=== PATIENT | male | born 1935 | race Caucasian/White ===

== ENCOUNTER → 2016-08-20 | Outpatient (CLI) | payer MEDICARE, OTHER ==
--- NOTE | 2016-08-20 15:03 | REP ---
PA and lateral chest: There are no comparisons. There is a faintly visible 4 mm nodule in the right mid lung. There are no other masses or nodules. There are no infiltrates or effusions. Cardiac size is normal. The marquis, mediastinum, and bony thorax are unremarkable. Impression: There are no acute infiltrates or pleural effusions. There is a faintly visible 4 mm nodule in the right mid lung. I would recommend chest CT to determine if this is a true lung nodule. Otherwise, negative PA and lateral chest. Signed by Harman Moses MD 08/20/2016 02:55 P
== END ==
LOC: M RAD 14:33
PROVIDERS: ATTEND Family Medicine
DX: J06.9 Acute upper respiratory infection, unspecified (principal); R91.1 Solitary pulmonary nodule
CPT/HCPCS: 71020; G0463

== ENCOUNTER 2016-09-01 05:25 | Emergency (ER) | payer MEDICARE, OTHER ==
--- NOTE | 2016-09-01 07:54 | REP ---
Clinical: Acute chest pain . Comparison: 08/20/2016 . Technique: PA and lateral. Findings: The mediastinum and cardiac silhouette are normal. The lung east are clear and without acute consolidation, effusion, or pneumothorax. The skeletal structures are intact and normal. Impression: 1. No acute cardiopulmonary process. Signed by Sourav James MD 09/01/2016 07:45 A
[2016-09-01 08:01] LABS: BASO % 0.5 % (0.0-1.0); EOS # 0.2 K/mm3 (0.0-0.50); EOS % 2.2 % (0.0-3.0); LARGE UNSTAINED CELL # 0.2 K/mm3 (0.0-0.4); LARGE UNSTAINED CELL % 1.6 % (0.0-4.0); LYMPH # 2.2 K/mm3 (1.5-4.5); MEAN CORPUSCULAR HEMOGLOBIN 31.4 pg (27.0-33.0); MEAN CORPUSCULAR HGB CONC 34.2 g/dl (32.0-36.5); MONO # 0.8 K/mm3 (0.0-0.8); NEUTROPHILS # 7.3 K/mm3 (1.8-7.7); NEUTROPHILS % 68.8 % (36.0-66.0); PLATELET COUNT, AUTOMATED 222 k/mm3 (150-450); RED CELL DISTRIBUTION WIDTH 12.6 % (11.5-14.5); WHITE BLOOD COUNT 10.6 K/mm3 (4.0-10.0)
[2016-09-01 08:18] LABS: ANION GAP 9 MEQ/L (8-16); BLOOD UREA NITROGEN 16 MG/DL (7-18); CARBON DIOXIDE LEVEL 27 MEQ/L (21-32); CHLORIDE LEVEL 103 MEQ/L (98-107); CREATININE FOR GFR 1.36 MG/DL (0.70-1.30); GLOMERULAR FILTRATION RATE 53.5 (>35); GLUCOSE, FASTING 200 MG/DL (83-110); SODIUM LEVEL 139 MEQ/L (136-145)
--- NOTE | 2016-09-01 08:52 | ECGEPIP ---
Stationary ECG Study [facility] - ED Test Date: 2016-09-01 Pat Name: MICHEAL SHINE Department: Room: - Gender: M Pharmacy Services Director: gurpreet : 1935 Requested By: ITZEL Arias Order Number: [id number] Reading MD: Sean Banegas Measurements Intervals [place] Rate: 64 P: 24 DC: 183 QRS: -24 QRSD: 83 T: 38 QT: 375 QTc: 388 Interpretive Statements SINUS RHYTHM POSSIBLE LAE BORDERLINE LEFT AXIS DEVIATION NO PRIORS Electronically Signed On 09-01-2016 8:52:17 EST by Sean Banegas
[2016-09-01] MEDS ORDERED: ISOVUE-370 76% 100ML VIAL (Q9967) As Ordered ONE (08:54)
--- NOTE | 2016-09-01 09:40 | REP ---
Clinical: Acute chest pain and shortness of breath. Technique: Axial contrast enhanced images from the thoracic inlet to the upper abdomen using 100 ml Isovue 370 intravenous contrast material with coronal and sagittal re-formations. Findings: Satisfactory enhancement of the pulmonary vasculature is achieved and no filling defects are identified to suggest pulmonary embolus. Thoracic aorta is normal caliber without aneurysm or dissection. Heart and pericardium are normal. Bilateral lung east are well aerated and clear without acute pulmonary parenchymal consolidation or atelectasis. Small calcified granuloma up to 4 mm consistent with prior granulomas disease. No significant nodule or mass lesion. No pleural effusion/reaction. No pneumothorax. No adenopathy. Impression: No evidence for pulmonary embolus. No acute pleuroparenchymal or mediastinal process. Evidence of prior granulomatous disease. Signed by Sourav James MD 09/01/2016 09:32 A
[2016-09-01 11:23] LABS: INR 0.91
[2016-09-01] MEDS ORDERED: ALBUTEROL 90 MCG/ACT 8GM HFA INHALER As Ordered ONE (12:18)
--- NOTE | 2016-09-01 12:25 | EDDOCDS ---
Nurse's Notes [facility] Name: Andrei Trejo Age: 80 yrs Sex: Male : 1935 Arrival Date: 09/01/2016 Time: 05:25 Bed D1 Private MD: Diagnosis: Chest pain, unspecified Presentation: 09/01 05:32 Presenting complaint: Patient states: he has been treated for bronchitis/pneumonia for cz the past 2 months by [facility] and own provider . presents this a.m. with ongoing issues of same. nasal congestion cough non productive. Adult Sepsis Screening: The patient does not have new or worsening altered mentation. Patient's respiratory rate is less than 22. Systolic blood pressure is greater than 100. Patient has a qSOFA score of 0- Negative Sepsis Screen. Suicide/Homicide risk assessment- the patient denies having any suicidal and/or homicidal ideations and does not present with any other emotional, behavioral or mental health complaints. Status: Patient is not a director nursing service or dependent. Transition of care: patient was not received from another setting of care. 05:32 Acuity: CARLYN Level 3 cz 05:32 Method Of Arrival: Walkin/Carried/Asstd cz Triage Assessment: 05:42 General: Appears in no apparent distress. Pain: Denies pain. Respiratory: Onset: The cz symptoms/episode began/occurred month ago. Historical: - Allergies: TETRACYCLINES; - Home Meds: 1. Levaquin 500 mg Oral tab once daily has not taken today dose 2. enalapril maleate 10 mg Oral tab 3. Multivitamin Oral 4. Bentyl 10 mg Oral cap 3 times per day 5. benzaclin 6. klaron 7. eye vic lutei;n 8. Drisdol 50,000 unit Oral cap once daily 9. dicyclomine 10 mg Oral cap bid 10. esomeprazole magnesium 40 mg Oral cpDR 2 times per day 11. ranitidine HCl 300 mg Oral tab 2 times per day 12. simvastatin 20 mg Oral tab once daily 13. Januvia 100 mg oral tab once daily 14. ipratropium bromide - PMHx: Hypertension; Diabetes - NIDDM: controlled; Hypercholesterolemia; GERD; DDD; Macular Degeneration; - PSHx: Cholecystectomy; - Social history: Smoking status: Patient states former smoker of tobacco. No barriers to communication noted, The patient speaks fluent Azerbaijani, Speaks appropriately for age. - Family history: Not pertinent. - : The pt / caregiver states he / she is not on anticoagulants. Home medication list is obtained from the patient. - Exposure Risk Screening:: None identified. Screenin:06 Screening information is obtained from the patient. Fall risk: No risks identified. js15 Assistance ADL's: requires no assistance with activities of daily living. Abuse/DV Screen: The patient / caregiver reports he/she is: not in a situation that causes fear, pain or injury. Nutritional screening: No deficits noted. home support is adequate. Assessment: 06:06 General: Appears in no apparent distress, comfortable, Behavior is appropriate for age, js15 cooperative. Pain: Denies pain. Neurological: Level of Consciousness is awake, alert, obeys commands, Oriented to person, place, time. Cardiovascular: Capillary refill < 3 seconds Heart tones S1 S2 present Rhythm is sinus rhythm Chest pain is denied. Respiratory: Airway is patent Respiratory effort is even, unlabored, Respiratory pattern is regular, symmetrical, Breath sounds are clear bilaterally. Reports shortness of breath. GI: Abdomen is non- distended Bowel sounds present X 4 quads. Abd is soft and non tender X 4 quads. Derm: Skin is pink, warm & dry. 07:10 General: Appears in no apparent distress, comfortable, Behavior is appropriate for age, ml6 cooperative. Pain: Denies pain. Neurological: No deficits noted. Level of Consciousness is awake, alert, Oriented to person, place, time. Cardiovascular: No deficits noted. Capillary refill < 3 seconds is brisk in bilateral fingers toes Heart tones S1 S2 present Edema is absent. Pulses are all present. Rhythm is sinus rhythm Chest pain is denied. Respiratory: No deficits noted. Airway is patent Respiratory effort is even, unlabored, Respiratory pattern is regular, symmetrical, Breath sounds are clear bilaterally. Reports no respiratory complaints. 08:10 General: Appears in no apparent distress, comfortable, Behavior is appropriate for age, ml6 cooperative. Pain: Denies pain. Neurological: No deficits noted. Level of Consciousness is awake, alert, Oriented to person, place, time. Cardiovascular: No deficits noted. Capillary refill < 3 seconds is brisk in bilateral fingers toes Heart tones S1 S2 present. 09:00 Reassessment: Patient appears in no apparent distress at this time. Patient denies pain ml6 at this time. Patient states feeling better. Patient states symptoms have improved. 10:00 Reassessment: Patient appears in no apparent distress at this time. Patient denies pain ml6 at this time. Patient states feeling better. Patient states symptoms have improved. Vital Signs: 05:42 BP 139 / 59; Pulse 74; Resp 16; Temp 97.7(O); Pulse Ox 94% on R/A; Weight 87.09 kg; cz Height 5 ft. 10 in. (177.80 cm); 07:12 BP 128 / 61; Pulse 71; Resp 16; Pulse Ox 98% on R/A; Pain 0/10; ml6 11:17 BP 122 / 54; Pulse 70; Resp 16; Temp 98.2(O); Pulse Ox 98% on R/A; Pain 0/10; ml6 05:42 Body Mass Index 27.55 (87.09 kg, 177.80 cm) cz Vitals: 05:42 Log In Time: September 01, 2016 at 05:25. cz ED Course: 05:28 Patient visited by Guillermina Beck. gjb 05:28 Patient moved to Waiting gjb 05:36 Triage Initiated cz 05:44 Patient moved to 15 cz 06:06 Patient visited by Nicolette Gann RN. js15 06:49 REPLACED BY [facility] Payment Agreement was scanned into [employer]redUP and attached to record. pm4 07:04 Virgen Choudhury MD is Attending Physician. fg 07:04 Patient visited by Virgen Choudhury MD. fg 07:10 EKG done. (by ED staff). Reviewed by Virgen Choudhury MD. jlf 07:10 Inserted peripheral IV: 18gauge IV in left antecubital area and blood collected. ml6 Patient tolerated the procedure well. Labs drawn. (by ED staff). Sent per order to lab. 07:15 Patient visited by Emilee Vanessa PCA. jlf 07:15 Patient visited by Emilee Vanessa PCA. jlf 07:44 Patient visited by Emilee Vanessa PCA. jlf 08:06 Chest, 2 View (pa\E\lat) Returned. EDMS 08:08 The patient / caregiver is instructed regarding the plan of care and ED course. ml6 08:17 Patient visited by Yash Patterson RN. ml6 09:12 EKG-ADULT Returned. EDMS 09:26 Patient visited by Yash Patterson RN. ml6 09:47 CT Chest Angio R/O PE Returned. EDMS 09:57 Patient visited by Yash Patterson RN. ml6 10:15 Patient visited by Emilee Vanessa PCA. jlf 10:51 Patient visited by Emilee Vanessa PCA. jlf 11:06 Patient visited by Yash Patterson RN. ml6 11:17 Nehemias Thayer MD is Referral Physician. fg 11:58 Patient visited by Yash Patterson RN. ml6 12:04 Nehemias Thayer MD is Referral Physician. fg 12:24 Patient moved to ml6 Administered Medications: 12:24 Drug: Ventolin 2 puffs [Ventolin HFA 90 mcg/actuation aerosol inhaler (2 puffs)] Route: ml6 Inhalation; Order Results: Lab Order: B-Type Natiuretic Peptide; SPEC'M 09/01/16 07:35 Test: BRAIN NATRIURETIC PEPTIDE; Value: 13.0; Range: <100; Units: PG/ML; Status: F Lab Order: Basic Metabolic Profile; SPEC'M 09/01/16 07:35 Test: GLUCOSE, FASTING; Value: 200; Range: 83-110; Abnormal: Above high normal; Units: MG/DL; Status: F Test: BLOOD UREA NITROGEN; Value: 16; Range: 7-18; Units: MG/DL; Status: F Test: CREATININE FOR GFR; Value: 1.36; Range: 0.70-1.30; Abnormal: Above high normal; Units: MG/DL; Status: F Test: GLOMERULAR FILTRATION RATE; Value: 53.5; Range: >35; Status: F Test: SODIUM LEVEL; Value: 139; Range: 136-145; Units: MEQ/L; Status: F Test: POTASSIUM SERUM; Value: 4.0; Range: 3.5-5.1; Units: MEQ/L; Status: F Test: CHLORIDE LEVEL; Value: 103; Range: 98-107; Units: MEQ/L; Status: F Test: CARBON DIOXIDE LEVEL; Value: 27; Range: 21-32; Units: MEQ/L; Status: F Test: ANION GAP; Value: 9; Range: 8-16; Units: MEQ/L; Status: F Test: CALCIUM LEVEL; Value: 9.0; Range: 8.8-10.2; Units: MG/DL; Status: F Test Note: ; Units are mL/min/1.73 m2 Chronic Kidney Disease Staging per NKF: Stage I & II GFR >=60 Normal to Mildly Decreased Stage III GFR 30-59 Moderately Decreased Stage IV GFR 15-29 Severely Decreased Stage V GFR <15 Very Little GFR Left ESRD GFR <15 on SHOTBLAST OPERATOR Lab Order: CBC with Diff; SPEC'M 09/01/16 07:35 Test: WHITE BLOOD COUNT; Value: 10.6; Range: 4.0-10.0; Abnormal: Above high normal; Units: K/mm3; Status: F Test: RED BLOOD COUNT; Value: 4.91; Range: 4.30-6.10; Units: M/mm3; Status: F Test: HEMOGLOBIN; Value: 15.5; Range: 14.0-18.0; Units: g/dl; Status: F Test: HEMATOCRIT; Value: 45.2; Range: 42.0-52.0; Units: %; Status: F Test: MEAN CORPUSCULAR VOLUME; Value: 92.0; Range: 80.0-96.0; Units: fl; Status: F Test: MEAN CORPUSCULAR HEMOGLOBIN; Value: 31.4; Range: 27.0-33.0; Units: pg; Status: F Test: MEAN CORPUSCULAR HGB CONC; Value: 34.2; Range: 32.0-36.5; Units: g/dl; Status: F Test: RED CELL DISTRIBUTION WIDTH; Value: 12.6; Range: 11.5-14.5; Units: %; Status: F Test: PLATELET COUNT, AUTOMATED; Value: 222; Range: 150-450; Units: k/mm3; Status: F Test: NEUTROPHILS %; Value: 68.8; Range: 36.0-66.0; Abnormal: Above high normal; Units: %; Status: F Test: LYMPH %; Value: 19.0; Range: 24.0-44.0; Abnormal: Below low normal; Units: %; Status: F Test: MONO %; Value: 8.0; Range: 0.0-5.0; Abnormal: Above high normal; Units: %; Status: F Test: EOS %; Value: 2.2; Range: 0.0-3.0; Units: %; Status: F Test: BASO %; Value: 0.5; Range: 0.0-1.0; Units: %; Status: F Test: LARGE UNSTAINED CELL %; Value: 1.6; Range: 0.0-4.0; Units: %; Status: F Test: NEUTROPHILS #; Value: 7.3; Range: 1.8-7.7; Units: K/mm3; Status: F Test: LYMPH #; Value: 2.2; Range: 1.5-4.5; Units: K/mm3; Status: F Test: MONO #; Value: 0.8; Range: 0.0-0.8; Units: K/mm3; Status: F Test: EOS #; Value: 0.2; Range: 0.0-0.50; Units: K/mm3; Status: F Test: BASO #; Value: 0.0; Range: 0.0-0.2; Units: K/mm3; Status: F Test: LARGE UNSTAINED CELL #; Value: 0.2; Range: 0.0-0.4; Units: K/mm3; Status: F Lab Order: Prothrombin Time Profile\E\INR; SPEC09/01/16 07:35 Test: PROTHROMBIN TIME; Value: 12.4; Range: 12.3-14.5; Units: SECONDS; Status: F Test: INR; Value: 0.91; Status: F Test Note: ; THERAPUTIC HUMAN INR VALUES INDICATIONS NORMAL RANGES PROPHYLAXIS/TREATMENT OF: VENOUS THROMBOSIS 2.0-3.0 PULMONARY EMBOLISM 2.0-3.0 PREVENTION OF SYSTEMIC EMBOLISM FROM: TISSUE HEART VALVES 2.0-3.0 ACUTE MYOCARDIAL INFARCTION 2.0-3.0 VALVULAR HEART DISEASE 2.0-3.0 ATRIAL FIBRILLATION 2.0-3.0 MECHANICAL VALVES(HIGH RISK) 2.5-3.5 RECURRENT MYOCARDIAL INFARCTION 2.5-3.5 Lab Order: CARDIAC MARKER PANEL; SPEC'M 09/01/16 07:35 Test: CPK CREATINE PHOSPHOKINASE; Value: 136; Range: 39-308; Units: U/L; Status: F Test: CK-MB VALUE MASS; Value: 1.7; Range: 0.0-3.6; Units: NG/ML; Status: F Test: MB/CK RELATIVE INDEX; Value: 1.25; Range: < OR =4; Status: F Test: TROPONIN I; Value: < 0.02; Range: < 0.10; Units: NG/ML; Status: F Test Note: ; DIAGNOSIS CRITERIA MMB ng/ml Relative Index (RI) NON-AMI < or = 5 N/A LEE ZONE > 5 < or = 4 AMI > 5 > 4 Radiology Order: Chest, 2 View (pa\E\lat) Test: Chest, 2 View (pa\E\lat) REASON FOR EXAMINATION: Chest Pain; Clinical: Acute chest pain .; ; Comparison: 08/20/2016 .; ; Technique: PA and lateral.; ; Findings:; The mediastinum and cardiac silhouette are normal. The lung east are clear and; without acute consolidation, effusion, or pneumothorax. The skeletal structures; are intact and normal.; ; Impression:; 1. 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: ; : 1935 Requested By: VIRGEN Arias; Order Number: [id number] Reading MD: Sean Banegas; Measurements; Intervals [place]; Rate: 64 P: 24; ME: 183 QRS: -24; QRSD: 83 T: 38; QT: 375; QTc: 388; Interpretive Statements; SINUS RHYTHM; POSSIBLE LAE; BORDERLINE LEFT AXIS DEVIATION; NO PRIORS; Electronically Signed On 09-01-2016 8:52:17 EST by Sean Banegas; Radiology Order: CT Chest Angio R/O PE Test: CT Chest Angio R/O PE REASON FOR EXAMINATION: Shortness of Breath; Clinical: Acute chest pain and shortness of breath.; ; Technique: Axial contrast enhanced images from the thoracic inlet to the upper; abdomen using 100 ml Isovue 370 intravenous contrast material with coronal and; sagittal re-formations.; ; Findings: Satisfactory enhancement of the pulmonary vasculature is achieved and; no filling defects are identified to suggest pulmonary embolus. Thoracic aorta; is normal caliber without aneurysm or dissection. Heart and pericardium are; normal. Bilateral lung east are well aerated and clear without acute pulmonary; parenchymal consolidation or atelectasis. Small calcified granuloma up to 4 mm; consistent with prior granulomas disease. No significant nodule or mass lesion.; No pleural effusion/reaction. No pneumothorax. No adenopathy.; ; Impression:; No evidence for pulmonary embolus.; No acute pleuroparenchymal or mediastinal process.; Evidence of prior granulomatous disease.; ; ; Signed by; Sourav James MD 09/01/2016 09:32 A; Outcome: 11:17 Discharge ordered by Provider. fg 12:07 Discharge ordered by Provider. fg 12:24 Patient left the ED. ml6 Signatures: Dispatcher [employer] EDMS Aguilar Evans RN RN cz Lowe, Matthew RN RN ml6 Emilee Vanessa PCA PCA jlf Sweeney, JuliaRN RN js15 Virgen Choudhury MD MD fg Beck, Gabriela gjb Montondo, Paul, Reg Reg pm4 Corrections: (The following items were deleted from the chart) 08:16 05:42 Allergies: No known drug Allergies; gary ml6 MTDD
--- NOTE | 2016-09-01 12:25 | EDDOCDS ---
Physician Documentation [facility] Name: Andrei Trejo Age: 80 yrs Sex: Male : 1935 Arrival Date: 09/01/2016 Time: 05:25 Bed D1 Private MD: Disposition: 09/01/16 12:07 Discharged to Home/Self Care. Impression: Chest pain, unspecified. - Condition is Stable. - Discharge Instructions: Nonspecific Chest Pain, Shortness of Breath, [id number]. - Medication Reconciliation, Local Pharmacy Hours form. - Follow up: Nehemias Thayer MD; When: Call to arrange an appointment; Reason: Continuance of care. - Problem is new. - Symptoms have improved. Historical: - Allergies: TETRACYCLINES; - Home Meds: 1. Levaquin 500 mg Oral tab once daily has not taken today dose 2. enalapril maleate 10 mg Oral tab 3. Multivitamin Oral 4. Bentyl 10 mg Oral cap 3 times per day 5. benzaclin 6. klaron 7. eye vic lutei;n 8. Drisdol 50,000 unit Oral cap once daily 9. dicyclomine 10 mg Oral cap bid 10. esomeprazole magnesium 40 mg Oral cpDR 2 times per day 11. ranitidine HCl 300 mg Oral tab 2 times per day 12. simvastatin 20 mg Oral tab once daily 13. Januvia 100 mg oral tab once daily 14. ipratropium bromide - PMHx: Hypertension; Diabetes - NIDDM: controlled; Hypercholesterolemia; GERD; DDD; Macular Degeneration; - PSHx: Cholecystectomy; - Social history: Smoking status: Patient states former smoker of tobacco. No barriers to communication noted, The patient speaks fluent Algerian, Speaks appropriately for age. - Family history: Not pertinent. - : The pt / caregiver states he / she is not on anticoagulants. Home medication list is obtained from the patient. - Exposure Risk Screening:: None identified. Vital Signs: 09/01 05:42 BP 139 / 59; Pulse 74; Resp 16; Temp 97.7(O); Pulse Ox 94% on R/A; Weight 87.09 kg / cz 192 lbs; Height 5 ft. 10 in. (177.80 cm); 07:12 BP 128 / 61; Pulse 71; Resp 16; Pulse Ox 98% on R/A; Pain 0/10; ml6 11:17 BP 122 / 54; Pulse 70; Resp 16; Temp 98.2(O); Pulse Ox 98% on R/A; Pain 0/10; ml6 05:42 Body Mass Index 27.55 (87.09 kg, 177.80 cm) cz MDM: 06:49 [facility] Payment Agreement was scanned into [employer] and attached to record. pm4 07:05 Banana Carrier/Pulse Ox/q 30 min VS ordered. fg 07:05 IV Saline Lock ordered. fg 07:05 Rhythm Strip to chart ordered. fg 07:05 Undress patient appropriately for examination ordered. fg 07:06 Financial registration complete. pm4 07:06 Chest, 2 View (pa\E\lat) Ordered. EDMS 07:06 B-Type Natiuretic Peptide Ordered. EDMS 07:06 Basic Metabolic Profile Ordered. EDMS 07:06 CBC with Diff Ordered. EDMS 07:06 Prothrombin Time Profile\E\INR Ordered. EDMS 07:06 ECG WITH READING ER PHYS+CARDIAG ordered. EDMS 08:01 CT Chest Angio R/O PE Ordered. EDMS 11:23 REGULAR DIET ordered. EDMS 11:24 CARDIAC MARKER PANEL Ordered. EDMS 12:16 Ventolin Inhaler 2 puffs Inhalation once ordered. fg Administered Medications: 12:24 Drug: Ventolin 2 puffs [Ventolin HFA 90 mcg/actuation aerosol inhaler (2 puffs)] Route: ml6 Inhalation; Signatures: Dispatcher [employer] EDMS Aguilar Evans RN RN cz Yash Patterson RN RN ml6 Nicolette Gann RN RN js15 Virgen Choudhury MD MD Preston Woodall, Reg Reg pm4 The chart was reviewed and I authenticate all verbal orders and agree with the evaluation and treatment provided.Corrections: (The following items were deleted from the chart) 08:16 05:42 Allergies: No known drug Allergies; cz ml6 11:23 11:22 CARDIAC MARKER PANEL ordered. EDMS EDMS Attachments: 06:49 [facility] Payment Agreement pm4 MTDD
--- NOTE | 2016-09-01 13:17 | EDDOCDS ---
Physician Documentation [facility] Name: Andrei Trejo Age: 80 yrs Sex: Male : 1935 Arrival Date: 09/01/2016 Time: 05:25 Bed D1 Private MD: Disposition: 09/01/16 12:07 Discharged to Home/Self Care. Impression: Chest pain, unspecified. - Condition is Stable. - Discharge Instructions: Nonspecific Chest Pain, Shortness of Breath, [id number]. - Medication Reconciliation, Local Pharmacy Hours form. - Follow up: Nehemias Thayer MD; When: Call to arrange an appointment; Reason: Continuance of care. - Problem is new. - Symptoms have improved. Historical: - Allergies: TETRACYCLINES; - Home Meds: 1. Levaquin 500 mg Oral tab once daily has not taken today dose 2. enalapril maleate 10 mg Oral tab 3. Multivitamin Oral 4. Bentyl 10 mg Oral cap 3 times per day 5. benzaclin 6. klaron 7. eye vic lutei;n 8. Drisdol 50,000 unit Oral cap once daily 9. dicyclomine 10 mg Oral cap bid 10. esomeprazole magnesium 40 mg Oral cpDR 2 times per day 11. ranitidine HCl 300 mg Oral tab 2 times per day 12. simvastatin 20 mg Oral tab once daily 13. Januvia 100 mg oral tab once daily 14. ipratropium bromide - PMHx: Hypertension; Diabetes - NIDDM: controlled; Hypercholesterolemia; GERD; DDD; Macular Degeneration; - PSHx: Cholecystectomy; - Social history: Smoking status: Patient states former smoker of tobacco. No barriers to communication noted, The patient speaks fluent Lao, Speaks appropriately for age. - Family history: Not pertinent. - : The pt / caregiver states he / she is not on anticoagulants. Home medication list is obtained from the patient. - Exposure Risk Screening:: None identified. Vital Signs: 09/01 05:42 BP 139 / 59; Pulse 74; Resp 16; Temp 97.7(O); Pulse Ox 94% on R/A; Weight 87.09 kg / cz 192 lbs; Height 5 ft. 10 in. (177.80 cm); 07:12 BP 128 / 61; Pulse 71; Resp 16; Pulse Ox 98% on R/A; Pain 0/10; ml6 11:17 BP 122 / 54; Pulse 70; Resp 16; Temp 98.2(O); Pulse Ox 98% on R/A; Pain 0/10; ml6 05:42 Body Mass Index 27.55 (87.09 kg, 177.80 cm) cz MDM: 06:49 [facility] [place] Agreement was scanned into [employer] and attached to record. pm4 07:05 Veterinary Laboratory Technician/Pulse Ox/q 30 min VS ordered. fg 07:05 IV Saline Lock ordered. fg 07:05 Rhythm Strip to chart ordered. fg 07:05 Undress patient appropriately for examination ordered. fg 07:06 Financial registration complete. pm4 07:06 Chest, 2 View (pa\E\lat) Ordered. EDMS 07:06 B-Type Natiuretic Peptide Ordered. EDMS 07:06 Basic Metabolic Profile Ordered. EDMS 07:06 CBC with Diff Ordered. EDMS 07:06 Prothrombin Time Profile\E\INR Ordered. EDMS 07:06 ECG WITH READING ER PHYS+CARDIAG ordered. EDMS 08:01 CT Chest Angio R/O PE Ordered. EDMS 11:23 REGULAR DIET ordered. EDMS 11:24 CARDIAC MARKER PANEL Ordered. EDMS 12:16 Ventolin Inhaler 2 puffs Inhalation once ordered. fg Administered Medications: 12:24 Drug: Ventolin 2 puffs [Ventolin HFA 90 mcg/actuation aerosol inhaler (2 puffs)] Route: ml6 Inhalation; Signatures: Dispatcher [employer] EDMS Aguilar Evans RN RN cz Yash Patterson RN RN ml6 Nicolette Gann RN RN js15 Virgen Choudhury MD MD Preston Woodall, Reg Reg pm4 The chart was reviewed and I authenticate all verbal orders and agree with the evaluation and treatment provided.Corrections: (The following items were deleted from the chart) 08:16 05:42 Allergies: No known drug Allergies; cz ml6 11:23 11:22 CARDIAC MARKER PANEL ordered. EDMS EDMS 13:07 12:54 TROPONIN+LAB ordered. EDMS EDMS 13:07 12:54 CARDIAC MARKER PANEL+LAB ordered. EDDE EDMS Attachments: 06:49 [facility] [place] pm4 MTDD
--- NOTE | 2016-09-01 13:17 | EDDOCDS ---
Nurse's Notes [facility] Name: Andrei Trejo Age: 80 yrs Sex: Male : 1935 Arrival Date: 09/01/2016 Time: 05:25 Bed D1 Private MD: Diagnosis: Chest pain, unspecified Presentation: 09/01 05:32 Presenting complaint: Patient states: he has been treated for bronchitis/pneumonia for cz the past 2 months by [facility] and own provider . presents this a.m. with ongoing issues of same. nasal congestion cough non productive. Adult Sepsis Screening: The patient does not have new or worsening altered mentation. Patient's respiratory rate is less than 22. Systolic blood pressure is greater than 100. Patient has a qSOFA score of 0- Negative Sepsis Screen. Suicide/Homicide risk assessment- the patient denies having any suicidal and/or homicidal ideations and does not present with any other emotional, behavioral or mental health complaints. 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 Transition of care: patient was not received from another setting of care. 05:32 Acuity: CARLYN Level 3 cz 05:32 Method Of Arrival: Walkin/Carried/Asstd cz Triage Assessment: 05:42 General: Appears in no apparent distress. Pain: Denies pain. Respiratory: Onset: The cz symptoms/episode began/occurred month ago. Historical: - Allergies: TETRACYCLINES; - Home Meds: 1. Levaquin 500 mg Oral tab once daily has not taken today dose 2. enalapril maleate 10 mg Oral tab 3. Multivitamin Oral 4. Bentyl 10 mg Oral cap 3 times per day 5. benzaclin 6. klaron 7. eye vic lutei;n 8. Drisdol 50,000 unit Oral cap once daily 9. dicyclomine 10 mg Oral cap bid 10. esomeprazole magnesium 40 mg Oral cpDR 2 times per day 11. ranitidine HCl 300 mg Oral tab 2 times per day 12. simvastatin 20 mg Oral tab once daily 13. Januvia 100 mg oral tab once daily 14. ipratropium bromide - PMHx: Hypertension; Diabetes - NIDDM: controlled; Hypercholesterolemia; GERD; DDD; Macular Degeneration; - PSHx: Cholecystectomy; - Social history: Smoking status: Patient states former smoker of tobacco. No barriers to communication noted, The patient speaks fluent [place], Speaks appropriately for age. - Family history: Not pertinent. - : The pt / caregiver states he / she is not on anticoagulants. Home medication list is obtained from the patient. - Exposure Risk Screening:: None identified. Screenin:06 Screening information is obtained from the patient. Fall risk: No risks identified. js15 Assistance ADL's: requires no assistance with activities of daily living. Abuse/DV Screen: The patient / caregiver reports he/she is: not in a situation that causes fear, pain or injury. Nutritional screening: No deficits noted. home support is adequate. 12:24 Advance Directives: Currently, there is no health care proxy. ml6 Assessment: 06:06 General: Appears in no apparent distress, comfortable, Behavior is appropriate for age, js15 cooperative. Pain: Denies pain. Neurological: Level of Consciousness is awake, alert, obeys commands, Oriented to person, place, time. Cardiovascular: Capillary refill < 3 seconds Heart tones S1 S2 present Rhythm is sinus rhythm Chest pain is denied. Respiratory: Airway is patent Respiratory effort is even, unlabored, Respiratory pattern is regular, symmetrical, Breath sounds are clear bilaterally. Reports shortness of breath. GI: Abdomen is non- distended Bowel sounds present X 4 quads. Abd is soft and non tender X 4 quads. Derm: Skin is pink, warm & dry. 07:10 General: Appears in no apparent distress, comfortable, Behavior is appropriate for age, ml6 cooperative. Pain: Denies pain. Neurological: No deficits noted. Level of Consciousness is awake, alert, Oriented to person, place, time. Cardiovascular: No deficits noted. Capillary refill < 3 seconds is brisk in bilateral fingers toes Heart tones S1 S2 present Edema is absent. Pulses are all present. Rhythm is sinus rhythm Chest pain is denied. Respiratory: No deficits noted. Airway is patent Respiratory effort is even, unlabored, Respiratory pattern is regular, symmetrical, Breath sounds are clear bilaterally. Reports no respiratory complaints. 08:10 General: Appears in no apparent distress, comfortable, Behavior is appropriate for age, ml6 cooperative. Pain: Denies pain. Neurological: No deficits noted. Level of Consciousness is awake, alert, Oriented to person, place, time. Cardiovascular: No deficits noted. Capillary refill < 3 seconds is brisk in bilateral fingers toes Heart tones S1 S2 present. 09:00 Reassessment: Patient appears in no apparent distress at this time. Patient denies pain ml6 at this time. Patient states feeling better. Patient states symptoms have improved. 10:00 Reassessment: Patient appears in no apparent distress at this time. Patient denies pain ml6 at this time. Patient states feeling better. Patient states symptoms have improved. 11:15 Reassessment: Patient appears in no apparent distress at this time. Patient denies pain ml6 at this time. Patient states feeling better. Patient states symptoms have improved. PATIENT AWAITING LAB RESULTS. 12:24 General: Appears in no apparent distress, comfortable, Behavior is appropriate for age, ml6 cooperative. Pain: Denies pain. Neurological: No deficits noted. Level of Consciousness is awake, alert, Oriented to person, place, time. Cardiovascular: No deficits noted. Capillary refill < 3 seconds is brisk in bilateral fingers toes Heart tones S1 S2 present. Respiratory: No deficits noted. GI: No deficits noted. Vital Signs: 05:42 BP 139 / 59; Pulse 74; Resp 16; Temp 97.7(O); Pulse Ox 94% on R/A; Weight 87.09 kg; cz Height 5 ft. 10 in. (177.80 cm); 07:12 BP 128 / 61; Pulse 71; Resp 16; Pulse Ox 98% on R/A; Pain 0/10; ml6 11:17 BP 122 / 54; Pulse 70; Resp 16; Temp 98.2(O); Pulse Ox 98% on R/A; Pain 0/10; ml6 05:42 Body Mass Index 27.55 (87.09 kg, 177.80 cm) Vitals: 05:42 Log In Time: September 01, 2016 at 05:25. ED Course: 05:28 Patient visited by Guillemrina Beck. gjb 05:28 Patient moved to Waiting gjb 05:36 Triage Initiated cz 05:44 Patient moved to 15 cz 06:06 Patient visited by Nicolette Gann RN. js15 06:49 [facility] [place] Agreement was scanned into [employer] and attached to record. pm4 07:04 Virgen Choudhury MD is Attending Physician. fg 07:04 Patient visited by Virgen Choudhury MD. fg 07:10 EKG done. (by ED staff). Reviewed by Virgen Choudhury MD. jlf 07:10 Inserted peripheral IV: 18gauge IV in left antecubital area and blood collected. ml6 Patient tolerated the procedure well. Labs drawn. (by ED staff). Sent per order to lab. 07:15 Patient visited by Emilee Vanessa PCA. jlf 07:15 Patient visited by Emilee Vanessa PCA. jlf 07:44 Patient visited by Emilee Vanessa PCA. jlf 08:06 Chest, 2 View (pa\E\lat) Returned. EDMS 08:08 The patient / caregiver is instructed regarding the plan of care and ED course. ml6 08:17 Patient visited by Yash Patterson RN. ml6 09:12 EKG-ADULT Returned. EDMS 09:26 Patient visited by Yash Patterson RN. ml6 09:47 CT Chest Angio R/O PE Returned. EDMS 09:57 Patient visited by Yash Patterson RN. ml6 10:15 Patient visited by Emilee Vanessa PCA. jlf 10:51 Patient visited by Emilee Vanessa PCA. jlf 11:06 Patient visited by Yash Patterson RN. ml6 11:17 Nehemias Thayer MD is Referral Physician. fg 11:58 Patient visited by Yash Patterson RN. ml6 12:04 Nehemias Thayer MD is Referral Physician. fg 12:24 Patient moved to D1 ml6 12:24 Discontinued IV bleeding controlled, pressure dressing applied, No redness/swelling at ml6 site. No procedures done that require assistance. Administered Medications: 12:24 Drug: Ventolin 2 puffs [Ventolin HFA 90 mcg/actuation aerosol inhaler (2 puffs)] Route: ml6 Inhalation; Order Results: Lab Order: B-Type Natiuretic Peptide; SPEC'M 09/01/16 07:35 Test: BRAIN NATRIURETIC PEPTIDE; Value: 13.0; Range: <100; Units: PG/ML; Status: F Lab Order: Basic Metabolic Profile; SPEC'M 09/01/16 07:35 Test: GLUCOSE, FASTING; Value: 200; Range: 83-110; Abnormal: Above high normal; Units: MG/DL; Status: F Test: BLOOD UREA NITROGEN; Value: 16; Range: 7-18; Units: MG/DL; Status: F Test: CREATININE FOR GFR; Value: 1.36; Range: 0.70-1.30; Abnormal: Above high normal; Units: MG/DL; Status: F Test: GLOMERULAR FILTRATION RATE; Value: 53.5; Range: >35; Status: F Test: SODIUM LEVEL; Value: 139; Range: 136-145; Units: MEQ/L; Status: F Test: POTASSIUM SERUM; Value: 4.0; Range: 3.5-5.1; Units: MEQ/L; Status: F Test: CHLORIDE LEVEL; Value: 103; Range: 98-107; Units: MEQ/L; Status: F Test: CARBON DIOXIDE LEVEL; Value: 27; Range: 21-32; Units: MEQ/L; Status: F Test: ANION GAP; Value: 9; Range: 8-16; Units: MEQ/L; Status: F Test: CALCIUM LEVEL; Value: 9.0; Range: 8.8-10.2; Units: MG/DL; Status: F Test Note: ; Units are mL/min/1.73 m2 Chronic Kidney Disease Staging per NKF: Stage I & II GFR >=60 Normal to Mildly Decreased Stage III GFR 30-59 Moderately Decreased Stage IV GFR 15-29 Severely Decreased Stage V GFR <15 Very Little GFR Left ESRD GFR <15 on TAB CARD PRESS OPERATOR Lab Order: CBC with Diff; SPEC'M 09/01/16 07:35 Test: WHITE BLOOD COUNT; Value: 10.6; Range: 4.0-10.0; Abnormal: Above high normal; Units: K/mm3; Status: F Test: RED BLOOD COUNT; Value: 4.91; Range: 4.30-6.10; Units: M/mm3; Status: F Test: HEMOGLOBIN; Value: 15.5; Range: 14.0-18.0; Units: g/dl; Status: F Test: HEMATOCRIT; Value: 45.2; Range: 42.0-52.0; Units: %; Status: F Test: MEAN CORPUSCULAR VOLUME; Value: 92.0; Range: 80.0-96.0; Units: fl; Status: F Test: MEAN CORPUSCULAR HEMOGLOBIN; Value: 31.4; Range: 27.0-33.0; Units: pg; Status: F Test: MEAN CORPUSCULAR HGB CONC; Value: 34.2; Range: 32.0-36.5; Units: g/dl; Status: F Test: RED CELL DISTRIBUTION WIDTH; Value: 12.6; Range: 11.5-14.5; Units: %; Status: F Test: PLATELET COUNT, AUTOMATED; Value: 222; Range: 150-450; Units: k/mm3; Status: F Test: NEUTROPHILS %; Value: 68.8; Range: 36.0-66.0; Abnormal: Above high normal; Units: %; Status: F Test: LYMPH %; Value: 19.0; Range: 24.0-44.0; Abnormal: Below low normal; Units: %; Status: F Test: MONO %; Value: 8.0; Range: 0.0-5.0; Abnormal: Above high normal; Units: %; Status: F Test: EOS %; Value: 2.2; Range: 0.0-3.0; Units: %; Status: F Test: BASO %; Value: 0.5; Range: 0.0-1.0; Units: %; Status: F Test: LARGE UNSTAINED CELL %; Value: 1.6; Range: 0.0-4.0; Units: %; Status: F Test: NEUTROPHILS #; Value: 7.3; Range: 1.8-7.7; Units: K/mm3; Status: F Test: LYMPH #; Value: 2.2; Range: 1.5-4.5; Units: K/mm3; Status: F Test: MONO #; Value: 0.8; Range: 0.0-0.8; Units: K/mm3; Status: F Test: EOS #; Value: 0.2; Range: 0.0-0.50; Units: K/mm3; Status: F Test: BASO #; Value: 0.0; Range: 0.0-0.2; Units: K/mm3; Status: F Test: LARGE UNSTAINED CELL #; Value: 0.2; Range: 0.0-0.4; Units: K/mm3; Status: F Lab Order: Prothrombin Time Profile\E\INR; SPEC'M 09/01/16 07:35 Test: PROTHROMBIN TIME; Value: 12.4; Range: 12.3-14.5; Units: SECONDS; Status: F Test: INR; Value: 0.91; Status: F Test Note: ; THERAPUTIC HUMAN INR VALUES INDICATIONS NORMAL RANGES PROPHYLAXIS/TREATMENT OF: VENOUS THROMBOSIS 2.0-3.0 PULMONARY EMBOLISM 2.0-3.0 PREVENTION OF SYSTEMIC EMBOLISM FROM: TISSUE HEART VALVES 2.0-3.0 ACUTE MYOCARDIAL INFARCTION 2.0-3.0 VALVULAR HEART DISEASE 2.0-3.0 ATRIAL FIBRILLATION 2.0-3.0 MECHANICAL VALVES(HIGH RISK) 2.5-3.5 RECURRENT MYOCARDIAL INFARCTION 2.5-3.5 Lab Order: CARDIAC MARKER PANEL; SPEC'M 09/01/16 07:35 Test: CPK CREATINE PHOSPHOKINASE; Value: 136; Range: 39-308; Units: U/L; Status: F Test: CK-MB VALUE MASS; Value: 1.7; Range: 0.0-3.6; Units: NG/ML; Status: F Test: MB/CK RELATIVE INDEX; Value: 1.25; Range: < OR =4; Status: F Test: TROPONIN I; Value: < 0.02; Range: < 0.10; Units: NG/ML; Status: F Test Note: ; DIAGNOSIS CRITERIA MMB ng/ml Relative Index (RI) NON-AMI < or = 5 N/A LEE ZONE > 5 < or = 4 AMI > 5 > 4 Radiology Order: Chest, 2 View (pa\E\lat) Test: Chest, 2 View (pa\E\lat) REASON FOR EXAMINATION: Chest Pain; Clinical: Acute chest pain .; ; Comparison: 08/20/2016 .; ; Technique: PA and lateral.; ; Findings:; The mediastinum and cardiac silhouette are normal. The lung east are clear and; without acute consolidation, effusion, or pneumothorax. The skeletal structures; are intact and normal.; ; Impression:; 1. 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; : 1935 Requested By: VIRGEN Arias; Order Number: [id number] Reading MD: Sean Banegas; Measurements; Intervals [place]; Rate: 64 P: 24; TN: 183 QRS: -24; QRSD: 83 T: 38; QT: 375; QTc: 388; Interpretive Statements; SINUS RHYTHM; POSSIBLE LAE; BORDERLINE LEFT AXIS DEVIATION; NO PRIORS; Electronically Signed On 09-01-2016 8:52:17 EST by Sean Banegas; Radiology Order: CT Chest Angio R/O PE Test: CT Chest Angio R/O PE REASON FOR EXAMINATION: Shortness of Breath; Clinical: Acute chest pain and shortness of breath.; ; Technique: Axial contrast enhanced images from the thoracic inlet to the upper; abdomen using 100 ml Isovue 370 intravenous contrast material with coronal and; sagittal re-formations.; ; Findings: Satisfactory enhancement of the pulmonary vasculature is achieved and; no filling defects are identified to suggest pulmonary embolus. Thoracic aorta; is normal caliber without aneurysm or dissection. Heart and pericardium are; normal. Bilateral lung east are well aerated and clear without acute pulmonary; parenchymal consolidation or atelectasis. Small calcified granuloma up to 4 mm; consistent with prior granulomas disease. No significant nodule or mass lesion.; No pleural effusion/reaction. No pneumothorax. No adenopathy.; ; Impression:; No evidence for pulmonary embolus.; No acute pleuroparenchymal or mediastinal process.; Evidence of prior granulomatous disease.; ; ; Signed by; Sourav James MD 09/01/2016 09:32 A; Outcome: 11:17 Discharge ordered by Provider. fg 12:07 Discharge ordered by Provider. fg 12:24 Patient left the ED. ml6 12:24 Discharge Assessment: patient administered narcotics - no. The following High Risk ml6 Discharge criteria are identified: None. Discharged to home ambulatory, with family. Condition: improved. Discharge instructions given to patient, Instructed on discharge instructions, follow up and referral plans. medication usage, Demonstrated understanding of instructions, medications, Pt was receptive of discharge instructions/ teaching. 13:14 No special radiology studies were completed. Property :Personal belongings accompany Pt.ml6 13:16 Patient left the ED. ml6 Signatures: Dispatcher [facility] EDPA Aguilar Evans RN RN cz Lowe, Matthew, RN RN ml6 Emilee Vanessa, MERCHANDISE FOR RESALE PURCHASING AGENT MERCHANDISE FOR RESALE PURCHASING AGENT jlf Nicolette Gann,RN RN js15 Virgen Choudhury MD MD fg Beck, Gabriela gjb Montondo, Paul, Reg Reg pm4 Corrections: (The following items were deleted from the chart) 08:16 05:42 Allergies: No known drug Allergies; cz ml6 MTDD
--- NOTE | 2016-09-03 14:17 | EDDOCDS ---
Physician Documentation [facility] Name: Andrei Trejo Age: 80 yrs Sex: Male : 1935 Arrival Date: 09/01/2016 Time: 05:25 Bed D1 Private MD: Disposition: 09/01/16 12:07 Discharged to Home/Self Care. Impression: Chest pain, unspecified. - Condition is Stable. - Discharge Instructions: Nonspecific Chest Pain, Shortness of Breath, [id number]. - Medication Reconciliation, Local Pharmacy Hours form. - Follow up: Nehemias Thayer MD; When: Call to arrange an appointment; Reason: Continuance of care. - Problem is new. - Symptoms have improved. Historical: - Allergies: TETRACYCLINES; - Home Meds: 1. Levaquin 500 mg Oral tab once daily has not taken today dose 2. enalapril maleate 10 mg Oral tab 3. Multivitamin Oral 4. Bentyl 10 mg Oral cap 3 times per day 5. benzaclin 6. klaron 7. eye vic lutei;n 8. Drisdol 50,000 unit Oral cap once daily 9. dicyclomine 10 mg Oral cap bid 10. esomeprazole magnesium 40 mg Oral cpDR 2 times per day 11. ranitidine HCl 300 mg Oral tab 2 times per day 12. simvastatin 20 mg Oral tab once daily 13. Januvia 100 mg oral tab once daily 14. ipratropium bromide - PMHx: Hypertension; Diabetes - NIDDM: controlled; Hypercholesterolemia; GERD; DDD; Macular Degeneration; - PSHx: Cholecystectomy; - Social history: Smoking status: Patient states former smoker of tobacco. No barriers to communication noted, The patient speaks fluent [place]anian, Speaks appropriately for age. - Family history: Not pertinent. - : The pt / caregiver states he / she is not on anticoagulants. Home medication list is obtained from the patient. - Exposure Risk Screening:: None identified. Vital Signs: 09/01 05:42 BP 139 / 59; Pulse 74; Resp 16; Temp 97.7(O); Pulse Ox 94% on R/A; Weight 87.09 kg / cz 192 lbs; Height 5 ft. 10 in. (177.80 cm); 07:12 BP 128 / 61; Pulse 71; Resp 16; Pulse Ox 98% on R/A; Pain 0/10; ml6 11:17 BP 122 / 54; Pulse 70; Resp 16; Temp 98.2(O); Pulse Ox 98% on R/A; Pain 0/10; ml6 05:42 Body Mass Index 27.55 (87.09 kg, 177.80 cm) cz MDM: 06:49 [facility] Payment Agreement was scanned into [employer] and attached to record. pm4 07:05 Cell Attendant Helper/Pulse Ox/q 30 min VS ordered. fg 07:05 IV Saline Lock ordered. fg 07:05 Rhythm Strip to chart ordered. fg 07:05 Undress patient appropriately for examination ordered. fg 07:06 Financial registration complete. pm4 07:06 Chest, 2 View (pa\E\lat) Ordered. EDMS 07:06 B-Type Natiuretic Peptide Ordered. EDMS 07:06 Basic Metabolic Profile Ordered. EDMS 07:06 CBC with Diff Ordered. EDMS 07:06 Prothrombin Time Profile\E\INR Ordered. EDMS 07:06 ECG WITH READING ER PHYS+CARDIAG ordered. EDMS 08:01 CT Chest Angio R/O PE Ordered. EDMS 11:23 REGULAR DIET ordered. EDMS 11:24 CARDIAC MARKER PANEL Ordered. EDMS 12:16 Ventolin Inhaler 2 puffs Inhalation once ordered. fg 17:10 T-Sheet-- Draft Copy was scanned into [employer] and attached to record. klr 09/02 11:50 ECG/EKG was scanned into [employer] and attached to record. gb Administered Medications: 09/01 12:24 Drug: Ventolin 2 puffs [Ventolin HFA 90 mcg/actuation aerosol inhaler (2 puffs)] Route: ml6 Inhalation; Signatures: Dispatcher [employer] EDMS Aguilar Evans, PATI RN cz Idania Canela, Reg Reg gb Yash Patterson RN RN ml6 Nicolette Gann,RN RN js15 Virgen Choudhury MD MD fg Redder, Kathie klr Montondo, Paul, Reg Reg pm4 The chart was reviewed and I authenticate all verbal orders and agree with the evaluation and treatment provided.Corrections: (The following items were deleted from the chart) 08:16 05:42 Allergies: No known drug Allergies; cz ml6 11:23 11:22 CARDIAC MARKER PANEL ordered. EDMS EDMS 13:07 12:54 TROPONIN+LAB ordered. EDMS EDMS : 12:54 CARDIAC MARKER PANEL+LAB ordered. EDMS EDMS Attachments: 06:49 [facility] Payment Agreement pm4 17:10 T-Sheet-- Draft Copy klr 09/02 11:50 ECG/EKG gb Chart Complete MTDD
--- NOTE | 2016-09-03 14:17 | EDDOCDS ---
Nurse's Notes [facility] Name: Andrei Trejo Age: 80 yrs Sex: Male : 1935 Arrival Date: 09/01/2016 Time: 05:25 Bed D1 Private MD: Diagnosis: Chest pain, unspecified Presentation: 09/01 05:32 Presenting complaint: Patient states: he has been treated for bronchitis/pneumonia for cz the past 2 months by [facility] and own provider . presents this a.m. with ongoing issues of same. nasal congestion cough non productive. Adult Sepsis Screening: The patient does not have new or worsening altered mentation. Patient's respiratory rate is less than 22. Systolic blood pressure is greater than 100. Patient has a qSOFA score of 0- Negative Sepsis Screen. Suicide/Homicide risk assessment- the patient denies having any suicidal and/or homicidal ideations and does not present with any other emotional, behavioral or mental health complaints. Status: Patient is not a client services vice president or dependent. Transition of care: patient was not received from another setting of care. 05:32 Acuity: CARLYN Level 3 cz 05:32 Method Of Arrival: Walkin/Carried/Asstd cz Triage Assessment: 05:42 General: Appears in no apparent distress. Pain: Denies pain. Respiratory: Onset: The cz symptoms/episode began/occurred month ago. Historical: - Allergies: TETRACYCLINES; - Home Meds: 1. Levaquin 500 mg Oral tab once daily has not taken today dose 2. enalapril maleate 10 mg Oral tab 3. Multivitamin Oral 4. Bentyl 10 mg Oral cap 3 times per day 5. benzaclin 6. klaron 7. eye vic lutei;n 8. Drisdol 50,000 unit Oral cap once daily 9. dicyclomine 10 mg Oral cap bid 10. esomeprazole magnesium 40 mg Oral cpDR 2 times per day 11. ranitidine HCl 300 mg Oral tab 2 times per day 12. simvastatin 20 mg Oral tab once daily 13. Januvia 100 mg oral tab once daily 14. ipratropium bromide - PMHx: Hypertension; Diabetes - NIDDM: controlled; Hypercholesterolemia; GERD; DDD; Macular Degeneration; - PSHx: Cholecystectomy; - Social history: Smoking status: Patient states former smoker of tobacco. No barriers to communication noted, The patient speaks fluent [place], Speaks appropriately for age. - Family history: Not pertinent. - : The pt / caregiver states he / she is not on anticoagulants. Home medication list is obtained from the patient. - Exposure Risk Screening:: None identified. Screenin:06 Screening information is obtained from the patient. Fall risk: No risks identified. js15 Assistance ADL's: requires no assistance with activities of daily living. Abuse/DV Screen: The patient / caregiver reports he/she is: not in a situation that causes fear, pain or injury. Nutritional screening: No deficits noted. home support is adequate. 12:24 Advance Directives: Currently, there is no health care proxy. ml6 Assessment: 06:06 General: Appears in no apparent distress, comfortable, Behavior is appropriate for age, js15 cooperative. Pain: Denies pain. Neurological: Level of Consciousness is awake, alert, obeys commands, Oriented to person, place, time. Cardiovascular: Capillary refill < 3 seconds Heart tones S1 S2 present Rhythm is sinus rhythm Chest pain is denied. Respiratory: Airway is patent Respiratory effort is even, unlabored, Respiratory pattern is regular, symmetrical, Breath sounds are clear bilaterally. Reports shortness of breath. GI: Abdomen is non- distended Bowel sounds present X 4 quads. Abd is soft and non tender X 4 quads. Derm: Skin is pink, warm & dry. 07:10 General: Appears in no apparent distress, comfortable, Behavior is appropriate for age, ml6 cooperative. Pain: Denies pain. Neurological: No deficits noted. Level of Consciousness is awake, alert, Oriented to person, place, time. Cardiovascular: No deficits noted. Capillary refill < 3 seconds is brisk in bilateral fingers toes Heart tones S1 S2 present Edema is absent. Pulses are all present. Rhythm is sinus rhythm Chest pain is denied. Respiratory: No deficits noted. Airway is patent Respiratory effort is even, unlabored, Respiratory pattern is regular, symmetrical, Breath sounds are clear bilaterally. Reports no respiratory complaints. 08:10 General: Appears in no apparent distress, comfortable, Behavior is appropriate for age, ml6 cooperative. Pain: Denies pain. Neurological: No deficits noted. Level of Consciousness is awake, alert, Oriented to person, place, time. Cardiovascular: No deficits noted. Capillary refill < 3 seconds is brisk in bilateral fingers toes Heart tones S1 S2 present. 09:00 Reassessment: Patient appears in no apparent distress at this time. Patient denies pain ml6 at this time. Patient states feeling better. Patient states symptoms have improved. 10:00 Reassessment: Patient appears in no apparent distress at this time. Patient denies pain ml6 at this time. Patient states feeling better. Patient states symptoms have improved. 11:15 Reassessment: Patient appears in no apparent distress at this time. Patient denies pain ml6 at this time. Patient states feeling better. Patient states symptoms have improved. PATIENT AWAITING LAB RESULTS. 12:24 General: Appears in no apparent distress, comfortable, Behavior is appropriate for age, ml6 cooperative. Pain: Denies pain. Neurological: No deficits noted. Level of Consciousness is awake, alert, Oriented to person, place, time. Cardiovascular: No deficits noted. Capillary refill < 3 seconds is brisk in bilateral fingers toes Heart tones S1 S2 present. Respiratory: No deficits noted. GI: No deficits noted. Vital Signs: 05:42 BP 139 / 59; Pulse 74; Resp 16; Temp 97.7(O); Pulse Ox 94% on R/A; Weight 87.09 kg; cz Height 5 ft. 10 in. (177.80 cm); 07:12 BP 128 / 61; Pulse 71; Resp 16; Pulse Ox 98% on R/A; Pain 0/10; ml6 11:17 BP 122 / 54; Pulse 70; Resp 16; Temp 98.2(O); Pulse Ox 98% on R/A; Pain 0/10; ml6 05:42 Body Mass Index 27.55 (87.09 kg, 177.80 cm) Vitals: 05:42 Log In Time: September 01, 2016 at 05:25. ED Course: 05:28 Patient visited by Guillermina Beck. gjb 05:28 Patient moved to Waiting gjb 05:36 Triage Initiated cz 05:44 Patient moved to 15 cz 06:06 Patient visited by Nicolette Gann RN. js15 06:49 [facility] [place] was scanned into MYOMO and attached to record. pm4 07:04 Virgen Choudhury MD is Attending Physician. fg 07:04 Patient visited by Virgen Choudhury MD. fg 07:10 EKG done. (by ED staff). Reviewed by Virgen Choudhury MD. jlf 07:10 Inserted peripheral IV: 18gauge IV in left antecubital area and blood collected. ml6 Patient tolerated the procedure well. Labs drawn. (by ED staff). Sent per order to lab. 07:15 Patient visited by Emilee Vanessa PCA. jlf 07:15 Patient visited by Emilee Vanessa PCA. jlf 07:44 Patient visited by Emilee Vanessa PCA. jlf 08:06 Chest, 2 View (pa\E\lat) Returned. EDMS 08:08 The patient / caregiver is instructed regarding the plan of care and ED course. ml6 08:17 Patient visited by Yash Patterson RN. ml6 09:12 EKG-ADULT Returned. EDMS 09:26 Patient visited by Yash Patterson RN. ml6 09:47 CT Chest Angio R/O PE Returned. EDMS 09:57 Patient visited by Yash Patterson RN. ml6 10:15 Patient visited by Emilee Vanessa PCA. jlf 10:51 Patient visited by Emilee Vanessa PCA. jlf 11:06 Patient visited by Yash Patterson RN. ml6 11:17 Nehemias Thayer MD is Referral Physician. fg 11:58 Patient visited by Yash Patterson RN. ml6 12:04 Nehemias Thayer MD is Referral Physician. fg 12:24 Patient moved to D1 ml6 12:24 Discontinued IV bleeding controlled, pressure dressing applied, No redness/swelling at ml6 site. No procedures done that require assistance. 17:10 T-Sheet-- Draft Copy was scanned into MYOMO and attached to record. r 09/02 11:50 ECG/EKG was scanned into MYOMO and attached to record. gb Administered Medications: 09/01 12:24 Drug: Ventolin 2 puffs [Ventolin HFA 90 mcg/actuation aerosol inhaler (2 puffs)] Route: ml6 Inhalation; Order Results: Lab Order: B-Type Natiuretic Peptide; SPEC'M 09/01/16 07:35 Test: BRAIN NATRIURETIC PEPTIDE; Value: 13.0; Range: <100; Units: PG/ML; Status: F Lab Order: Basic Metabolic Profile; SPEC'M 09/01/16 07:35 Test: GLUCOSE, FASTING; Value: 200; Range: 83-110; Abnormal: Above high normal; Units: MG/DL; Status: F Test: BLOOD UREA NITROGEN; Value: 16; Range: 7-18; Units: MG/DL; Status: F Test: CREATININE FOR GFR; Value: 1.36; Range: 0.70-1.30; Abnormal: Above high normal; Units: MG/DL; Status: F Test: GLOMERULAR FILTRATION RATE; Value: 53.5; Range: >35; Status: F Test: SODIUM LEVEL; Value: 139; Range: 136-145; Units: MEQ/L; Status: F Test: POTASSIUM SERUM; Value: 4.0; Range: 3.5-5.1; Units: MEQ/L; Status: F Test: CHLORIDE LEVEL; Value: 103; Range: 98-107; Units: MEQ/L; Status: F Test: CARBON DIOXIDE LEVEL; Value: 27; Range: 21-32; Units: MEQ/L; Status: F Test: ANION GAP; Value: 9; Range: 8-16; Units: MEQ/L; Status: F Test: CALCIUM LEVEL; Value: 9.0; Range: 8.8-10.2; Units: MG/DL; Status: F Test Note: ; Units are mL/min/1.73 m2 Chronic Kidney Disease Staging per NKF: Stage I & II GFR >=60 Normal to Mildly Decreased Stage III GFR 30-59 Moderately Decreased Stage IV GFR 15-29 Severely Decreased Stage V GFR <15 Very Little GFR Left ESRD GFR <15 on BIBLIOGRAPHIC SERVICES SPECIALIST Lab Order: CBC with Diff; SPEC'M 09/01/16 07:35 Test: WHITE BLOOD COUNT; Value: 10.6; Range: 4.0-10.0; Abnormal: Above high normal; Units: K/mm3; Status: F Test: RED BLOOD COUNT; Value: 4.91; Range: 4.30-6.10; Units: M/mm3; Status: F Test: HEMOGLOBIN; Value: 15.5; Range: 14.0-18.0; Units: g/dl; Status: F Test: HEMATOCRIT; Value: 45.2; Range: 42.0-52.0; Units: %; Status: F Test: MEAN CORPUSCULAR VOLUME; Value: 92.0; Range: 80.0-96.0; Units: fl; Status: F Test: MEAN CORPUSCULAR HEMOGLOBIN; Value: 31.4; Range: 27.0-33.0; Units: pg; Status: F Test: MEAN CORPUSCULAR HGB CONC; Value: 34.2; Range: 32.0-36.5; Units: g/dl; Status: F Test: RED CELL DISTRIBUTION WIDTH; Value: 12.6; Range: 11.5-14.5; Units: %; Status: F Test: PLATELET COUNT, AUTOMATED; Value: 222; Range: 150-450; Units: k/mm3; Status: F Test: NEUTROPHILS %; Value: 68.8; Range: 36.0-66.0; Abnormal: Above high normal; Units: %; Status: F Test: LYMPH %; Value: 19.0; Range: 24.0-44.0; Abnormal: Below low normal; Units: %; Status: F Test: MONO %; Value: 8.0; Range: 0.0-5.0; Abnormal: Above high normal; Units: %; Status: F Test: EOS %; Value: 2.2; Range: 0.0-3.0; Units: %; Status: F Test: BASO %; Value: 0.5; Range: 0.0-1.0; Units: %; Status: F Test: LARGE UNSTAINED CELL %; Value: 1.6; Range: 0.0-4.0; Units: %; Status: F Test: NEUTROPHILS #; Value: 7.3; Range: 1.8-7.7; Units: K/mm3; Status: F Test: LYMPH #; Value: 2.2; Range: 1.5-4.5; Units: K/mm3; Status: F Test: MONO #; Value: 0.8; Range: 0.0-0.8; Units: K/mm3; Status: F Test: EOS #; Value: 0.2; Range: 0.0-0.50; Units: K/mm3; Status: F Test: BASO #; Value: 0.0; Range: 0.0-0.2; Units: K/mm3; Status: F Test: LARGE UNSTAINED CELL #; Value: 0.2; Range: 0.0-0.4; Units: K/mm3; Status: F Lab Order: Prothrombin Time Profile\E\INR; SPEC'M 09/01/16 07:35 Test: PROTHROMBIN TIME; Value: 12.4; Range: 12.3-14.5; Units: SECONDS; Status: F Test: INR; Value: 0.91; Status: F Test Note: ; THERAPUTIC HUMAN INR VALUES INDICATIONS NORMAL RANGES PROPHYLAXIS/TREATMENT OF: VENOUS THROMBOSIS 2.0-3.0 PULMONARY EMBOLISM 2.0-3.0 PREVENTION OF SYSTEMIC EMBOLISM FROM: TISSUE HEART VALVES 2.0-3.0 ACUTE MYOCARDIAL INFARCTION 2.0-3.0 VALVULAR HEART DISEASE 2.0-3.0 ATRIAL FIBRILLATION 2.0-3.0 MECHANICAL VALVES(HIGH RISK) 2.5-3.5 RECURRENT MYOCARDIAL INFARCTION 2.5-3.5 Lab Order: CARDIAC MARKER PANEL; SPEC'M 09/01/16 07:35 Test: CPK CREATINE PHOSPHOKINASE; Value: 136; Range: 39-308; Units: U/L; Status: F Test: CK-MB VALUE MASS; Value: 1.7; Range: 0.0-3.6; Units: NG/ML; Status: F Test: MB/CK RELATIVE INDEX; Value: 1.25; Range: < OR =4; Status: F Test: TROPONIN I; Value: < 0.02; Range: < 0.10; Units: NG/ML; Status: F Test Note: ; DIAGNOSIS CRITERIA MMB ng/ml Relative Index (RI) NON-AMI < or = 5 N/A LEE ZONE > 5 < or = 4 AMI > 5 > 4 Radiology Order: Chest, 2 View (pa\E\lat) Test: Chest, 2 View (pa\E\lat) REASON FOR EXAMINATION: Chest Pain; Clinical: Acute chest pain .; ; Comparison: 08/20/2016 .; ; Technique: PA and lateral.; ; Findings:; The mediastinum and cardiac silhouette are normal. The lung east are clear and; without acute consolidation, effusion, or pneumothorax. The skeletal structures; are intact and normal.; ; Impression:; 1. No acute cardiopulmonary process.; ; ; Signed by; Sourav James MD 09/01/2016 07:45 A; Radiology Order: EKG-ADULT Test: EKG-ADULT REASON FOR EXAMINATION: Chest Pain; Stationary ECG Study; [facility] - ED; ; Test Date: 2016-09-01; Pat Name: ANDREI TREJO Department:; Room: -; Gender: M Bar Tender: gurpreet; : 1935 Requested By: VIRGEN Arias; Order Number: [id number] Reading MD: Sean Banegas; Measurements; Intervals Steele; Rate: 64 P: 24; PA: 183 QRS: -24; QRSD: 83 T: 38; QT: 375; QTc: 388; Interpretive Statements; SINUS RHYTHM; POSSIBLE LAE; BORDERLINE LEFT AXIS DEVIATION; NO PRIORS; Electronically Signed On 09-01-2016 8:52:17 EST by Sean Banegas; Radiology Order: CT Chest Angio R/O PE Test: CT Chest Angio R/O PE REASON FOR EXAMINATION: Shortness of Breath; Clinical: Acute chest pain and shortness of breath.; ; Technique: Axial contrast enhanced images from the thoracic inlet to the upper; abdomen using 100 ml Isovue 370 intravenous contrast material with coronal and; sagittal re-formations.; ; Findings: Satisfactory enhancement of the pulmonary vasculature is achieved and; no filling defects are identified to suggest pulmonary embolus. Thoracic aorta; is normal caliber without aneurysm or dissection. Heart and pericardium are; normal. Bilateral lung aest are well aerated and clear without acute pulmonary; parenchymal consolidation or atelectasis. Small calcified granuloma up to 4 mm; consistent with prior granulomas disease. No significant nodule or mass lesion.; No pleural effusion/reaction. No pneumothorax. No adenopathy.; ; Impression:; No evidence for pulmonary embolus.; No acute pleuroparenchymal or mediastinal process.; Evidence of prior granulomatous disease.; ; ; Signed by; Sourav James MD 09/01/2016 09:32 A; Outcome: 11:17 Discharge ordered by Provider. fg 12:07 Discharge ordered by Provider. fg 12:24 Patient left the ED. ml6 12:24 Discharge Assessment: patient administered narcotics - no. The following High Risk ml6 Discharge criteria are identified: None. Discharged to home ambulatory, with family. Condition: improved. Discharge instructions given to patient, Instructed on discharge instructions, follow up and referral plans. medication usage, Demonstrated understanding of instructions, medications, Pt was receptive of discharge instructions/ teaching. 13:14 No special radiology studies were completed. Property :Personal belongings accompany Pt.ml6 13:16 Patient left the ED. ml6 Signatures: Dispatcher [employer] EDMS Aguilar Evans, RN RN cz Idania Canela, Reg Reg gb Yash Patterson RN RN ml6 Emilee Vanessa, VINNIE ANALYTICAL CHEMISTRY TEACHER Nicolette Myrick,RN RN js15 Virgen Choudhury MD MD fg Beck, Gabriela gjb Redder, Kathie klr Montondo, Paul, Reg Reg pm4 Corrections: (The following items were deleted from the chart) 08:16 05:42 Allergies: No known drug Allergies; cz ml6 Chart Complete MTDD
--- NOTE | 2016-09-03 14:17 | EDDOCDS ---
Physician Documentation [facility] Name: Andrei Trejo Age: 80 yrs Sex: Male : 1935 Arrival Date: 09/01/2016 Time: 05:25 Bed D1 Private MD: Disposition: 09/01/16 12:07 Discharged to Home/Self Care. Impression: Chest pain, unspecified. - Condition is Stable. - Discharge Instructions: Nonspecific Chest Pain, Shortness of Breath, [id number]. - Medication Reconciliation, Local Pharmacy Hours form. - Follow up: Nehemias Thayer MD; When: Call to arrange an appointment; Reason: Continuance of care. - Problem is new. - Symptoms have improved. Historical: - Allergies: TETRACYCLINES; - Home Meds: 1. Levaquin 500 mg Oral tab once daily has not taken today dose 2. enalapril maleate 10 mg Oral tab 3. Multivitamin Oral 4. Bentyl 10 mg Oral cap 3 times per day 5. benzaclin 6. klaron 7. eye vic lutei;n 8. Drisdol 50,000 unit Oral cap once daily 9. dicyclomine 10 mg Oral cap bid 10. esomeprazole magnesium 40 mg Oral cpDR 2 times per day 11. ranitidine HCl 300 mg Oral tab 2 times per day 12. simvastatin 20 mg Oral tab once daily 13. Januvia 100 mg oral tab once daily 14. ipratropium bromide - PMHx: Hypertension; Diabetes - NIDDM: controlled; Hypercholesterolemia; GERD; DDD; Macular Degeneration; - PSHx: Cholecystectomy; - Social history: Smoking status: Patient states former smoker of tobacco. No barriers to communication noted, The patient speaks fluent [place], Speaks appropriately for age. - Family history: Not pertinent. - : The pt / caregiver states he / she is not on anticoagulants. Home medication list is obtained from the patient. - Exposure Risk Screening:: None identified. Vital Signs: 09/01 05:42 BP 139 / 59; Pulse 74; Resp 16; Temp 97.7(O); Pulse Ox 94% on R/A; Weight 87.09 kg / cz 192 lbs; Height 5 ft. 10 in. (177.80 cm); 07:12 BP 128 / 61; Pulse 71; Resp 16; Pulse Ox 98% on R/A; Pain 0/10; ml6 11:17 BP 122 / 54; Pulse 70; Resp 16; Temp 98.2(O); Pulse Ox 98% on R/A; Pain 0/10; ml6 05:42 Body Mass Index 27.55 (87.09 kg, 177.80 cm) cz MDM: 06:49 [facility] [place] Agreement was scanned into [employer] and attached to record. pm4 07:05 Property Claims Manager/Pulse Ox/q 30 min VS ordered. fg 07:05 IV Saline Lock ordered. fg 07:05 Rhythm Strip to chart ordered. fg 07:05 Undress patient appropriately for examination ordered. fg 07:06 Financial registration complete. pm4 07:06 Chest, 2 View (pa\E\lat) Ordered. EDMS 07:06 B-Type Natiuretic Peptide Ordered. EDMS 07:06 Basic Metabolic Profile Ordered. EDMS 07:06 CBC with Diff Ordered. EDMS 07:06 Prothrombin Time Profile\E\INR Ordered. EDMS 07:06 ECG WITH READING ER PHYS+CARDIAG ordered. EDMS 08:01 CT Chest Angio R/O PE Ordered. EDMS 11:23 REGULAR DIET ordered. EDMS 11:24 CARDIAC MARKER PANEL Ordered. EDMS 12:16 Ventolin Inhaler 2 puffs Inhalation once ordered. fg 17:10 T-Sheet-- Draft Copy was scanned into [employer] and attached to record. klr 09/02 11:50 ECG/EKG was scanned into [employer] and attached to record. gb Administered Medications: 09/01 12:24 Drug: Ventolin 2 puffs [Ventolin HFA 90 mcg/actuation aerosol inhaler (2 puffs)] Route: ml6 Inhalation; Signatures: Dispatcher [employer] EDMS Aguilar Evans, PATI RN cz Idania Canela, Reg Reg gb Yash Patterson RN RN ml6 Nicolette Gann,RN RN js15 Virgen Choudhury MD MD fg Redder, Kathie klr Montondo, Paul, Reg Reg pm4 The chart was reviewed and I authenticate all verbal orders and agree with the evaluation and treatment provided.Corrections: (The following items were deleted from the chart) 08:16 05:42 Allergies: No known drug Allergies; cz ml6 11:23 11:22 CARDIAC MARKER PANEL ordered. EDMS EDMS 13:07 12:54 TROPONIN+LAB ordered. EDMS EDMS : 12:54 CARDIAC MARKER PANEL+LAB ordered. EDMS EDMS Attachments: 06:49 [facility] Payment Agreement pm4 17:10 T-Sheet-- Draft Copy klr 09/02 11:50 ECG/EKG gb Chart Complete MTDD
== END 2016-09-01 13:16 | disposition home or self-care (01) ==
LOC: M ED 05:25
DX: R07.9 Chest pain, unspecified (principal); R06.02 Shortness of breath; I10 Essential (primary) hypertension; E11.9 Type 2 diabetes mellitus without complications; E78.00 Pure hypercholesterolemia, unspecified; K21.9 Gastro-esophageal reflux disease without esophagitis; M51.9 Unspecified thoracic, thoracolumbar and lumbosacral intervertebral disc disorder; H35.30 Unspecified macular degeneration; Z79.899 Other long term (current) drug therapy; Z79.2 Long term (current) use of antibiotics; Z87.891 Personal history of nicotine dependence; Z88.1 Allergy status to other antibiotic agents
CPT/HCPCS: 36415; 71020; 71275; 80048; 82550; 82553; 83880; 84484; 85025; 85610; 93005; 93041; 99284; Q9967

== ENCOUNTER 2016-09-22 23:15 | Emergency (ER) | payer MEDICARE, OTHER ==
[~2016-09-22] VITALS: Ht 177.8 cm; Wt 86.2 kg
[2016-09-22] MEDS ORDERED: IPRA3SP (23:38)
[2016-09-22] MEDS ORDERED: ALBU17IN (23:38)
[2016-09-22] MEDS ORDERED: DICY10CA13 PO (23:38)
[2016-09-22] MEDS ORDERED: SIMV20TA2 PO (23:38)
[2016-09-22] MEDS ORDERED: ESOM1CAP5 PO (23:38)
[2016-09-22] MEDS ORDERED: ENAL20TA PO (23:38)
[2016-09-22] MEDS ORDERED: GLIP10TA58 PO (23:38)
[2016-09-22] MEDS ORDERED: GLIP10TA6 PO ×2 (23:38)
[2016-09-22] MEDS ORDERED: JANU100T PO (23:38)
[2016-09-23 01:43] VITALS: BP 169/80
== END 2016-09-23 01:58 | disposition left against medical advice (07) ==
LOC: M ED 09-23 01:12
DX: I10 Essential (primary) hypertension (principal); Z53.21 Procedure and treatment not carried out due to patient leaving prior to being seen by health care provider

== ENCOUNTER → 2016-12-26 | Outpatient (REF) | payer MEDICARE, OTHER ==
[~2016-12-26] MED LIST: ALBU17IN; DICY10CA13 PO; ENAL20TA PO; ESOM1CAP5 PO; GLIP10TA6 PO; GLIP1TAB11 PO; IPRA3SP; JANU100T PO; SIMV20TA2 PO
== END ==
LOC: M SFHCPLAZ 10:00
PROVIDERS: ATTEND Dermatology
DX: L57.0 Actinic keratosis (principal)
CPT/HCPCS: 11100; 88305; G0463

== ENCOUNTER → 2017-02-25 | Outpatient (CLI) | payer MEDICARE, OTHER ==
--- NOTE | 2017-02-25 11:35 | REP ---
PA and lateral chest: Comparisons are the PA and lateral chest of 09/01/[address] of 09/01/2016. Upon review of the chest CT there are two pleural-based nodular densities anterolaterally in the right upper lobe, one on image 43 measuring 7 mm and the other on image 45 measuring 8 mm. These are likely small calcific pleural plaques. Additionally there is a calcified pleural based nodular density in the left upper lobe on image 27 measuring 12 mm, also likely a small calcified pleural plaque. There are two noncalcified pleural plaques anterolaterally in the left upper lobe, one on image 19 measuring 3.0 cm in length by 6 mm in depth and the other on image 31 measuring 1.5 cm in length by 6 ml in depth. None of these calcified or noncalcified pleural plaques are visible on the PA and lateral plain films. The current PA and lateral chest otherwise demonstrates the lung east are clear. Cardiac size is normal. The marquis, mediastinum, and bony thorax are. Impression: There are calcified and noncalcified pleural plaques on the comparison CT as described. These are not visible on the PA and lateral plain film study. The PA and lateral plain film study today is otherwise unremarkable. There are no other comparison chest CT studies. Signed by Harman Moses MD 02/25/2017 11:27 A
== END ==
LOC: M RAD 10:38
PROVIDERS: ATTEND Family Medicine
DX: R91.1 Solitary pulmonary nodule (principal)

== ENCOUNTER → 2017-04-02 | Outpatient (CLI) | payer MEDICARE, OTHER ==
--- NOTE | 2017-04-02 12:54 | REP ---
Left knee MRI: There are no comparison studies. The study is performed with proton density and T2-weighted data sets in sagittal, axial and coronal projections. There is a large joint effusion. Suprapatellar plica and by the effusion. There is no Jackson's cyst. The patellofemoral articular cartilage is unremarkable. There are multiple defects in the articular cartilage of the medial compartment with marrow edema adjacent to these defects, compatible with advanced chondromalacia. The articular cartilage of the lateral compartment is unremarkable. The medial and lateral menisci are unremarkable. There are small osteophytes of the medial lateral femoral condyles. There is soft tissue edema related to the medial lateral retinacula I. There is periligamentous T2 signal along the medial collateral ligament compatible with sprain. There is no medial collateral ligament tear or retraction. The lateral collateral ligament is unremarkable. There is C2 signal within the fascial planes posteriorly compatible with edema. There is T2 signal at the musculotendinous junction of the popliteus muscle compatible with hemorrhage. The anterior posterior cruciate ligaments are unremarkable. The popliteal and patellar tendons are unremarkable. Impression: Medial and lateral retinacular sprain. Large joint effusion. Suprapatellar plica. Advanced chondromalacia of the medial compartment. Medial collateral ligament sprain. Popliteus muscle and tendon sprain. There is no meniscal tear. The cruciate ligaments are unremarkable. The quadriceps and patellar tendons are unremarkable. The lateral collateral ligament is unremarkable. Signed by Harman Moses MD 04/02/2017 12:45 P
== END ==
LOC: M RAD 10:11
PROVIDERS: ATTEND Family Medicine
DX: M25.462 Effusion, left knee (principal); M25.762 Osteophyte, left knee; M67.52 Plica syndrome, left knee

== ENCOUNTER → 2017-06-25 | Outpatient (REF) | payer MEDICARE, OTHER | LOC: M LABDRAW1 12:31 | PROVIDERS: ATTEND Family Medicine | DX: Z01.818 Encounter for other preprocedural examination (principal); Z79.899 Other long term (current) drug therapy ==

== ENCOUNTER 2017-07-27 16:46 | Emergency (ER) | payer MEDICARE, OTHER ==
[2017-07-27] MEDS: NS 500 ML IV (20:00)
[2017-07-27 20:14] LABS: BASO # 0.1 10^3/uL (0.0-0.2); BASO % 0.6 % (0.0-1.0); EOS # 0.4 10^3/uL (0.0-0.50); EOS % 3.1 % (0.0-3.0); HEMATOCRIT 36.7 % (42.0-52.0); HEMOGLOBIN 12.5 g/dl (14.0-18.0); IMMATURE GRANULOCYTE # 0.2 10^3/uL (0-0); IMMATURE GRANULOCYTE % 1.1 % (0-0); LYMPH # 1.8 10^3/uL (1.5-4.5); LYMPH % 13.2 % (24.0-44.0); MEAN CORPUSCULAR HEMOGLOBIN 30.6 pg (27.0-33.0); MEAN CORPUSCULAR HGB CONC 34.1 g/dl (32.0-36.5); MEAN CORPUSCULAR VOLUME 89.7 fl (80.0-96.0); MONO # 1.5 10^3/uL (0.0-0.8); MONO % 10.7 % (0.0-5.0); NEUTROPHILS # 9.7 10^3/uL (1.8-7.7); NEUTROPHILS % 71.3 % (36.0-66.0); PLATELET COUNT, AUTOMATED 492 10^3/uL (150-450); RED BLOOD COUNT 4.09 10^6/uL (4.30-6.10); RED CELL DISTRIBUTION WIDTH 12.3 % (11.5-14.5); WHITE BLOOD COUNT 13.5 10^3/uL (4.0-10.0)
[2017-07-27 20:30] LABS: KETONE, URINE AUTO RFX NEGATIVE (NEGATIVE); LEUKOCYTE ESTERASE UR AUTO RFX NEGATIVE (NEGATIVE); MUCUS, URINE RFX SMALL (NEGATIVE); NITRITE, URINE AUTO RFX NEGATIVE (NEGATIVE); RBC, URINE AUTO RFX 1 /HPF (0-3); SPECIFIC GRAVITY UR AUTO RFX 1.018 (1.002-1.035); SQUAM EPITHELIAL CELL UR AURFX 0 /HPF (0-6); WBC, URINE AUTO RFX 1 /HPF (0-3)
[2017-07-27 20:51] LABS: BEDSIDE GLUCOSE 123 MG/DL (83-110)
[2017-07-27 20:59] LABS: ALBUMIN 3.5 GM/DL (3.2-5.2); ALBUMIN/GLOBULIN RATIO 1.06 (1.00-1.93); ALKALINE PHOSPHATASE 91 U/L (45-117); ALT/SGPT 25 U/L (12-78); ANION GAP 8 MEQ/L (8-16); AST/SGOT 20 U/L (7-37); BILIRUBIN,DIRECT 0.1 MG/DL (0.0-0.2); BILIRUBIN,TOTAL 0.4 MG/DL (0.2-1.0); BLOOD UREA NITROGEN 15 MG/DL (7-18); CALCIUM LEVEL 8.6 MG/DL (8.8-10.2); CARBON DIOXIDE LEVEL 25 MEQ/L (21-32); CHLORIDE LEVEL 101 MEQ/L (98-107); CK-MB VALUE MASS 1.4 NG/ML (0.0-3.6); CPK CREATINE PHOSPHOKINASE 86 U/L (39-308); GLOMERULAR FILTRATION RATE > 60.0 (>35); GLUCOSE, FASTING 118 MG/DL (83-110); MB/CK RELATIVE INDEX 1.62 (< OR =4); POTASSIUM SERUM 4.7 MEQ/L (3.5-5.1); SODIUM LEVEL 134 MEQ/L (136-145); TOTAL PROTEIN 6.8 GM/DL (6.4-8.2); TROPONIN I < 0.02 NG/ML (< 0.10)
[2017-07-27 21:13] LABS: C REACTIVE PROTEIN QUANTITATIV < 0.30 MG/DL (0.00-0.30)
[2017-07-27 21:25] LABS: ERYTHROCYTE SEDIMENTATION RATE 37 mm/hr (0-20)
== END 2017-07-27 22:09 | disposition home or self-care (01) ==
LOC: M ED 22:09
DX: E86.0 Dehydration (principal); M79.662 Pain in left lower leg; G89.18 Other acute postprocedural pain; Z79.899 Other long term (current) drug therapy; Z98.890 Other specified postprocedural states; Z87.891 Personal history of nicotine dependence; Z88.1 Allergy status to other antibiotic agents
CPT/HCPCS: 71046

== ENCOUNTER → 2018-09-02 | Outpatient (CLI) | payer MEDICARE, OTHER ==
[~2018-09-02] MED LIST changes: +JANU50TA8 PO; +RANI150T PO; +ZOFR4TAB14 PO
[2018-09-02 19:49] LABS: BASO # 0.1 10^3/uL (0.0-0.2); BASO % 0.5 % (0.0-1.0); CALCIUM LEVEL 9.1 MG/DL (8.8-10.2); CREATININE FOR GFR 1.34 MG/DL (0.70-1.30); EOS # 0.3 10^3/uL (0.0-0.50); EOS % 3.5 % (0.0-3.0); GLOMERULAR FILTRATION RATE 54.2 (>35); HEMATOCRIT 45.1 % (42.0-52.0); HEMOGLOBIN 15.2 g/dl (13.5-17.5); LYMPH # 2.4 10^3/uL (1.5-4.5); LYMPH % 24.3 % (24.0-44.0); MAGNESIUM LEVEL 2.1 MG/DL (1.8-2.4); MEAN CORPUSCULAR HEMOGLOBIN 30.5 pg (27.0-33.0); MEAN CORPUSCULAR HGB CONC 33.7 g/dl (32.0-36.5); MEAN CORPUSCULAR VOLUME 90.4 fl (80.0-96.0); MONO # 1.2 10^3/uL (0.0-0.8); MONO % 11.7 % (0.0-5.0); NEUTROPHILS # 5.8 10^3/uL (1.8-7.7); NEUTROPHILS % 59.5 % (36.0-66.0); PLATELET COUNT, AUTOMATED 312 10^3/uL (150-450); POTASSIUM SERUM 4.2 MEQ/L (3.5-5.1); RED BLOOD COUNT 4.99 10^6/uL (4.30-6.10); WHITE BLOOD COUNT 9.8 10^3/uL (4.0-10.0)
== END ==
LOC: M WUC 15:46
PROVIDERS: ATTEND Physician Assistant
DX: R42 Dizziness and giddiness (principal)

== ENCOUNTER 2018-10-09 10:56 | Outpatient (RCR) | payer MEDICARE, OTHER | END 2018-10-11 | LOC: M PT 10:56 | PROVIDERS: ATTEND Family Medicine | DX: H81.12 Benign paroxysmal vertigo, left ear (principal) ==

== ENCOUNTER 2018-10-16 09:28 | Outpatient (RCR) | payer MEDICARE, OTHER | END 2018-11-10 | LOC: M PT 09:28 | PROVIDERS: ATTEND Family Medicine | DX: H81.12 Benign paroxysmal vertigo, left ear (principal) ==

== ENCOUNTER 2019-04-26 19:54 | Emergency (ER) | payer MEDICARE, OTHER ==
[~2019-04-26] VITALS: Ht 175.3 cm; Wt 88.6 kg
[2019-04-26 19:54] VITALS: BP 154/70
[2019-04-26] MEDS ORDERED: DEXI30CA2 PO (20:08)
[2019-04-26] MEDS ORDERED: TRES1INJ2 SC (20:08)
[2019-04-26] MEDS ORDERED: ENAL10TA2 PO (20:08)
[2019-04-26] MEDS ORDERED: CYCL5TAB PO (21:00)
[2019-04-26] MEDS ORDERED: CYCLOBENZAPRINE 5MG TABLET PO ONE (21:00)
== END 2019-04-26 21:56 | disposition home or self-care (01) ==
LOC: M ED 19:54
DX: M62.838 Other muscle spasm (principal); E11.9 Type 2 diabetes mellitus without complications; I10 Essential (primary) hypertension; E78.00 Pure hypercholesterolemia, unspecified; Z88.1 Allergy status to other antibiotic agents; Z79.4 Long term (current) use of insulin; Z79.899 Other long term (current) drug therapy

== ENCOUNTER → 2019-08-17 | Outpatient (CLI) | payer MEDICARE, OTHER ==
[~2019-08-17] MED LIST changes: +CYCL5TAB PO; +DEXI30CA2 PO; +ENAL10TA2 PO; -SIMV20TA2 PO; +SIMV20TA22 PO; +TRES1INJ2 SC
--- NOTE | 2019-08-17 15:13 | REP ---
Right lower extremity deep vein duplex ultrasound: The deep veins demonstrate normal compression, normal Doppler color flow and normal Doppler waveforms with respiration and augmentation from the popliteal vein to the common femoral vein. Impression: There is no right lower extremity deep vein thrombus. Electronically Signed by Harman Moses MD 08/17/2019 03:04 P
== END ==
LOC: M RAD 14:27
PROVIDERS: ATTEND Orthopaedic Surgery
DX: R22.41 Localized swelling, mass and lump, right lower limb (principal)

== ENCOUNTER → 2020-12-07 | Outpatient (CLI) | payer MEDICARE, OTHER ==
[~2020-12-07] MED LIST changes: +ENAL-36 PO; -ENAL10TA2 PO; -ENAL20TA PO; +ENAL20TA11 PO
--- NOTE | 2020-12-07 11:41 | REPVR ---
PROCEDURE INFORMATION: Exam: MR Lumbar Spine Without Contrast Exam date and time: 12/07/2020 10:08 AM Age: 85 years old Clinical indication: Low back pain; Patient HX: Lbp TECHNIQUE: Imaging protocol: Multiplanar magnetic resonance images of the lumbar spine without intravenous contrast. COMPARISON: CR Spine. Lumbosacral, complete 03/09/2015 11:04 AM FINDINGS: Vertebrae: There is mild mid to lower lumbar levoscoliosis. There is grade 1 anterolisthesis of L3 on L4 greater than L2 on L3. Vertebral body heights are maintained. Spinal cord: Conus terminates at T12-L1 and appears normal in signal intensity without intrinsic or extrinsic lesion. L1-L2: There is no significant posterior disc bulge. There is mild facet degeneration. There is no significant spinal stenosis. There is no significant neural foraminal narrowing. L2-L3: There is generalized disc bulge. There is mild facet degeneration. There is no significant spinal stenosis. There is mild bilateral neural foraminal narrowing. L3-L4: There is generalized disc bulge. There is moderate thickening of ligamentum flavum and facet degeneration. There is [id number]-swhtvpne spinal stenosis and subarticular recesses narrowing. There is mild bilateral neural foraminal narrowing. L4-L5: There is generalized disc bulge. There is 3-4 mm left paracentral protrusion extending above the disc space level further narrowing the L5 subarticular recess. There is thickening of ligamentum flavum and facet degeneration. There is mild spinal stenosis. There is moderate narrowing of superior aspect of L5 subarticlar recesses. There is moderate right and mild left neural foraminal narrowing. L5-S1: And There is disc desiccation. There is prominent disc height loss at L4-L5 and L5-S1. There are endplate degenerative marrow changes at L4-L5 and L5-S1. Vertebral body marrow signal is otherwise unremarkable. There is generalized disc bulge. There is 3-4 mm left central protrusion extending slightly above the disc space level. This narrows the left S1 subarticular recess. There is facet degeneration. There is no significant spinal stenosis. There is [id number] bilateral neural foraminal narrowing. Soft tissues: Unremarkable. IMPRESSION: Degenerative changes as described. L3-L4 shows [id number] spinal stenosis and subarticular recesses narrowing. L4-L5 shows small left paracentral superior protrusion narrowing L5 subarticular recess. L5-S1 shows small left paracentral superior protrusion narrowing left S1 subarticular recess. Electronically signed by: Maria A Winter On 12/07/2020 11:40:49 AM
== END ==
LOC: M PLARAD 08:49
PROVIDERS: ATTEND Orthopaedic Surgery
DX: M48.061 Spinal stenosis, lumbar region without neurogenic claudication (principal); M54.5 Low back pain

== ENCOUNTER → 2020-12-26 | Outpatient (CLI) | payer MEDICARE, OTHER ==
[2020-12-26 14:28] LABS: COLLAGEN EPINEPHRINE 103 SECONDS (74-162)
[2020-12-26 14:32] LABS: PLATELET COUNT, AUTOMATED 284 10^3/uL (150-450)
[2020-12-26 14:41] LABS: INR 0.92; PROTHROMBIN TIME 12.6 SECONDS (12.5-14.3)
[2020-12-26 14:42] LABS: PARTIAL THROMBOPLASTIN TIME 27.5 SECONDS (24.2-38.5)
== END ==
LOC: M PLALAB 10:01
PROVIDERS: ATTEND Physician Assistant Surgical
DX: M51.36 Other intervertebral disc degeneration, lumbar region (principal)

== ENCOUNTER → 2021-03-05 | Outpatient (CLI) | payer MEDICARE, OTHER ==
--- NOTE | 2021-03-05 15:18 | ECHO ---
ECHOCARDIOGRAM DATE OF PROCEDURE: 03/05/2021 Age: 85 Gender: Male Height: 69 inches Weight: 197 pounds Body Surface Area: 2.05 m2 REFERRING PHYSICIAN: Lissett Jo RN, ANP INDICATION: Murmur. MEASUREMENTS: 2D Measurements: RV 3.6 cm LV 4.3 cm Septum 1.3 cm Posterior wall 1.3 cm Aortic Root 3.5 cm LA 4.0 cm LVEF 65% Doppler Measurements: AV 1.2 m/s LVOT 0.85 m/s LVOT diameter 2.0 cm MV-E 69, A 64, EA ratio 1.1 Early mitral deceleration time 250 msec E prime medial 4.9, A prime medial 8.6, E prime lateral 8.1 Average E/E prime ration 10.6/PCWP 15 mmHg PV 0.8 m/s Pulmonary artery acceleration time 155 msec RVSP 24 mmHg IVC 1.9 cm COMMENTS: Normal sinus rhythm/sinus bradycardia without intraventricular conduction disturbance. Technically challenging study in light of the patient's body habitus but diagnostic useful information was still obtained. M-mode and 2-dimensional echocardiography was performed with pulse, continuous wave, color flow, and tissue Doppler studies. Mild concentric left ventricular hypertrophy with normal wall motion. Mildly dilated left atrium with Grade 2 LV diastolic dysfunction but current estimated mean left atrial pressure upper limits of normal. Normal right heart chamber sizes and motion and estimated pulmonary artery pressure. Normal IVC size and collapse against an elevated central venous pressure. Normal aortic dimensions. Mild aortic valvular sclerosis without stenosis and only trace insufficiency. Mild degenerative changes of his mitral valvular apparatus without inflow tract obstruction and only very mild insufficiency. Normal appearing tricuspid valve with only trace insufficiency. No apparent intracardiac mass or pericardial effusion.
== END ==
LOC: M CARPUL 09:18
PROVIDERS: ATTEND Nurse Practitioner Adult Health
DX: R01.1 Cardiac murmur, unspecified (principal)

== ENCOUNTER → 2021-03-27 | Outpatient (CLI) | payer MEDICARE, OTHER ==
[2021-03-27 15:12] LABS: ALBUMIN 3.7 GM/DL (3.2-5.2); BILIRUBIN,TOTAL 0.5 MG/DL (0.2-1.0); CALCIUM LEVEL 9.1 MG/DL (8.8-10.2); CHOLESTEROL RISK RATIO 3.863 (<5); CREATININE FOR GFR 1.44 MG/DL (0.70-1.30); GLOMERULAR FILTRATION RATE 49.5 (>35); POTASSIUM SERUM 4.9 MEQ/L (3.5-5.1); TOTAL PROTEIN 7.1 GM/DL (6.4-8.2)
[2021-03-27 15:39] LABS: MALB URINE SIEMENS 14.4 MG/L; MAU/CREAT RATIO 9.7 MCG/MG (0.0-30.0)
[2021-03-27 16:41] LABS: HEMOGLOBIN A1c 7.9 %
== END ==
LOC: M PLALAB 09:26
PROVIDERS: ATTEND Nurse Practitioner Adult Health
DX: E11.65 Type 2 diabetes mellitus with hyperglycemia (principal); E55.9 Vitamin D deficiency, unspecified; E78.5 Hyperlipidemia, unspecified; Z79.899 Other long term (current) drug therapy

== ENCOUNTER → 2021-05-01 | Outpatient (REF) | payer MEDICARE, OTHER | LOC: M SFHCPLAZ 16:45 | PROVIDERS: ATTEND Physician Assistant Medical | DX: J06.9 Acute upper respiratory infection, unspecified (principal) ==

== ENCOUNTER → 2021-07-10 | Outpatient (CLI) | payer MEDICARE, OTHER ==
[2021-07-10 13:29] LABS: BASO # 0.1 10^3/uL (0.0-0.2); BASO % 0.5 % (0.0-1.0); EOS # 0.3 10^3/uL (0.0-0.5); HEMATOCRIT 46.2 % (42.0-52.0); HEMOGLOBIN 15.6 g/dl (13.5-17.5); LYMPH # 1.8 10^3/uL (1.5-5.0); LYMPH % 18.3 % (24.0-44.0); MEAN CORPUSCULAR HEMOGLOBIN 30.7 pg (27.0-33.0); MEAN CORPUSCULAR HGB CONC 33.8 g/dl (32.0-36.5); MEAN CORPUSCULAR VOLUME 90.9 fl (80.0-96.0); MONO % 10.6 % (2.0-8.0); NEUTROPHILS # 6.6 10^3/uL (1.5-8.5); NEUTROPHILS % 67.1 % (36.0-66.0); PLATELET COUNT, AUTOMATED 306 10^3/uL (150-450); RED BLOOD COUNT 5.08 10^6/uL (4.30-6.10); WHITE BLOOD COUNT 9.8 10^3/uL (4.0-10.0)
[2021-07-10 13:55] LABS: BILIRUBIN,TOTAL 0.5 MG/DL (0.2-1.0); CALCIUM LEVEL 9.4 MG/DL (8.8-10.2); CREATININE FOR GFR 1.41 MG/DL (0.70-1.30); GLOMERULAR FILTRATION RATE 50.7 (>35); POTASSIUM SERUM 4.7 MEQ/L (3.5-5.1); TOTAL PROTEIN 7.4 GM/DL (6.4-8.2)
[2021-07-10 13:56] LABS: CK-MB VALUE MASS 2.1 NG/ML (<3.6); MB/CK RELATIVE INDEX 1.24 (< OR =4)
== END ==
LOC: M WUC 12:14
PROVIDERS: ATTEND Nurse Practitioner Family
DX: R07.9 Chest pain, unspecified (principal); R10.13 Epigastric pain

== ENCOUNTER → 2021-10-11 | Outpatient (CLI) | payer MEDICARE, OTHER ==
[2021-10-11 16:00] LABS: CALCIUM LEVEL 9.2 MG/DL (8.8-10.2); CHOLESTEROL RISK RATIO 4.641 (<5); CREATININE FOR GFR 1.59 MG/DL (0.70-1.30); GLOMERULAR FILTRATION RATE 44.2 (>35); POTASSIUM SERUM 4.8 MEQ/L (3.5-5.1); TOTAL 25(OH) VITAMIN D 85.2 NG/ML (30.0-100.0); TOTAL PROTEIN 7.1 GM/DL (6.4-8.2)
[2021-10-11 16:17] LABS: MALB URINE SIEMENS 17.7 MG/L; MAU/CREAT RATIO 9.8 MCG/MG (0.0-30.0)
[2021-10-11 17:39] LABS: HEMOGLOBIN A1c 7.8 %
== END ==
LOC: M PLALAB 10:00
PROVIDERS: ATTEND Nurse Practitioner Adult Health
DX: Z00.00 Encounter for general adult medical examination without abnormal findings (principal); E11.65 Type 2 diabetes mellitus with hyperglycemia; E78.5 Hyperlipidemia, unspecified; E55.9 Vitamin D deficiency, unspecified

== ENCOUNTER 2021-11-29 13:18 | Emergency (ER) | payer MEDICARE, OTHER ==
[~2021-11-29] VITALS: Ht 177.8 cm; Wt 90.0 kg
[2021-11-29 13:18] VITALS: BP 118/86
[2021-11-29] MEDS ORDERED: OMEP40CA5 (13:27)
[2021-11-29] MEDS ORDERED: FLUO20CA22 (13:27)
[2021-11-29] MEDS ORDERED: META1TAB22 (13:27)
== END 2021-11-29 15:33 | disposition home or self-care (01) ==
LOC: M ED 13:18
DX: S09.90XA Unspecified injury of head, initial encounter (principal); S13.4XXA Sprain of ligaments of cervical spine, initial encounter; W01.0XXA Fall on same level from slipping, tripping and stumbling without subsequent striking against object, initial encounter; Y92.480 Sidewalk as the place of occurrence of the external cause; I10 Essential (primary) hypertension; E11.9 Type 2 diabetes mellitus without complications; E78.00 Pure hypercholesterolemia, unspecified; Z79.899 Other long term (current) drug therapy; Z79.4 Long term (current) use of insulin; Z88.1 Allergy status to other antibiotic agents

== ENCOUNTER → 2022-03-15 | Outpatient (CLI) | payer MEDICARE, OTHER ==
[~2022-03-15] MED LIST changes: +FLUO20CA22; +META1TAB22; +OMEP40CA5
[2022-03-15 14:59] LABS: HEMOGLOBIN A1c 7.9 %
[2022-03-15 15:08] LABS: BILIRUBIN,TOTAL 0.4 MG/DL (0.2-1.0); CALCIUM LEVEL 8.8 MG/DL (8.8-10.2); CREATININE FOR GFR 1.46 MG/DL (0.70-1.30); GLOMERULAR FILTRATION RATE 48.6 (>35); POTASSIUM SERUM 4.8 MEQ/L (3.5-5.1)
[2022-03-15 15:09] LABS: ALBUMIN 3.6 GM/DL (3.2-5.2); CHOLESTEROL RISK RATIO 4.024 (<5); TOTAL PROTEIN 6.6 GM/DL (6.4-8.2)
[2022-03-15 15:15] LABS: MALB URINE SIEMENS 19.9 MG/L; MAU/CREAT RATIO 15.5 MCG/MG (0.0-30.0)
[2022-03-15 15:41] LABS: TOTAL 25(OH) VITAMIN D 80.9 NG/ML (30.0-100.0)
== END ==
LOC: M PLALAB 09:57
PROVIDERS: ATTEND Nurse Practitioner Adult Health
DX: E11.65 Type 2 diabetes mellitus with hyperglycemia (principal); E78.5 Hyperlipidemia, unspecified; E55.9 Vitamin D deficiency, unspecified; Z79.899 Other long term (current) drug therapy

== ENCOUNTER → 2022-04-08 | Outpatient (CLI) | payer MEDICARE, OTHER | LOC: M PLALAB 10:53 | PROVIDERS: ATTEND Nurse Practitioner Adult Health | DX: I10 Essential (primary) hypertension (principal) ==

== ENCOUNTER → 2022-08-30 | Outpatient (CLI) | payer MEDICARE, OTHER ==
[~2022-08-30] MED LIST changes: -ENAL-36 PO; +ENAL1TAB50 PO
== END ==
LOC: M CARPUL 09:42
PROVIDERS: ATTEND Nurse Practitioner Adult Health
DX: R01.1 Cardiac murmur, unspecified (principal)

== ENCOUNTER → 2022-09-02 | Outpatient (REF) | payer MEDICARE, OTHER ==
[~2022-09-02] MED LIST changes: +ENAL-36 PO; -ENAL1TAB50 PO
== END ==
LOC: M LAB REF 16:10
PROVIDERS: ATTEND Physician Assistant Medical
DX: R05.9 Cough, unspecified (principal); R50.9 Fever, unspecified

== ENCOUNTER → 2022-09-24 | Outpatient (CLI) | payer MEDICARE, OTHER ==
[~2022-09-24] MED LIST changes: -ENAL-36 PO; +ENAL1TAB50 PO
[2022-09-24 14:38] LABS: ALBUMIN 3.8 G/DL (3.2-5.2); BILIRUBIN,TOTAL 0.5 MG/DL (0.3-1.2); CALCIUM LEVEL 8.9 MG/DL (8.3-10.6); CREATININE FOR GFR 1.47 MG/DL (0.70-1.30); GLOMERULAR FILTRATION RATE 48.2 (>35); POTASSIUM SERUM 4.8 MMOL/L (3.5-5.1); TOTAL PROTEIN 6.7 G/DL (5.7-8.2)
== END ==
LOC: M PLALAB 10:11
PROVIDERS: ATTEND Nurse Practitioner Adult Health
DX: E11.65 Type 2 diabetes mellitus with hyperglycemia (principal)

== ENCOUNTER → 2022-09-30 | Outpatient (CLI) | payer MEDICARE, OTHER | LOC: M RAD 16:26 | PROVIDERS: ATTEND Physician Assistant Medical | DX: R06.02 Shortness of breath (principal); R05.9 Cough, unspecified ==

== ENCOUNTER → 2022-10-08 | Outpatient (CLI) | payer MEDICARE, OTHER ==
[~2022-10-08] MED LIST changes: +ENAL1TAB52 PO; -ENAL20TA11 PO
[2022-10-08 14:27] LABS: HEMOGLOBIN A1c 8.1 % (4.0-6.0)
[2022-10-08 14:35] LABS: CREATININE, URINE 172.6 MG/DL; MAU/CREAT RATIO 21.4 MCG/MG (0.0-30.0)
[2022-10-08 14:43] LABS: ALBUMIN 3.8 G/DL (3.2-5.2); BILIRUBIN,TOTAL 0.7 MG/DL (0.3-1.2); CALCIUM LEVEL 9.2 MG/DL (8.3-10.6); CHOLESTEROL RISK RATIO 4.31 (<5); CREATININE FOR GFR 1.4 MG/DL (0.70-1.30); HDL CHOLESTEROL 36.4 MG/DL (>40); LDL CHOLESTEROL 73.4 MG/DL (<100); NON-HDL-C 120.6 MG/DL; POTASSIUM SERUM 5.1 MMOL/L (3.5-5.1); TOTAL PROTEIN 6.8 G/DL (5.7-8.2)
[2022-10-08 14:44] LABS: TOTAL 25(OH) VITAMIN D 88.3 NG/ML (20.0-100.0)
== END ==
LOC: M PLALAB 11:53
PROVIDERS: ATTEND Nurse Practitioner Adult Health
DX: E11.65 Type 2 diabetes mellitus with hyperglycemia (principal); E55.9 Vitamin D deficiency, unspecified; E78.5 Hyperlipidemia, unspecified; Z79.899 Other long term (current) drug therapy

== ENCOUNTER → 2022-11-19 | Outpatient (CLI) | payer MEDICARE, OTHER | LOC: M RAD 08:17 | PROVIDERS: ATTEND Internal Medicine Cardiovascular Disease | DX: I71.9 Aortic aneurysm of unspecified site, without rupture (principal) ==

== ENCOUNTER → 2023-01-31 | Outpatient (CLI) | payer MEDICARE, OTHER ==
[~2023-01-31] MED LIST changes: +DICY-61 PO; -DICY10CA13 PO
[2023-01-31 16:02] LABS: BASO % 0.4 % (0.0-1.0); EOS # 0.2 10^3/uL (0.0-0.5); EOS % 2.3 % (0.0-3.0); HEMATOCRIT 42.8 % (42.0-52.0); HEMOGLOBIN 14.3 g/dl (13.5-17.5); LYMPH # 1.5 10^3/uL (1.5-5.0); LYMPH % 17.2 % (24.0-44.0); MEAN CORPUSCULAR HEMOGLOBIN 31.2 pg (27.0-33.0); MEAN CORPUSCULAR HGB CONC 33.4 g/dl (32.0-36.5); MEAN CORPUSCULAR VOLUME 93.2 fl (80.0-96.0); MONO # 1.1 10^3/uL (0.0-0.8); MONO % 11.7 % (2.0-8.0); NEUTROPHILS # 6.1 10^3/uL (1.5-8.5); PLATELET COUNT, AUTOMATED 317 10^3/uL (150-450); RED BLOOD COUNT 4.59 10^6/uL (4.30-6.10)
[2023-01-31 16:28] LABS: TOTAL 25(OH) VITAMIN D 92.8 NG/ML (20.0-100.0)
[2023-01-31 16:29] LABS: FERRITIN 156.4 NG/ML (10.5-307.3); FREE T4 0.82 NG/DL (0.89-1.76)
[2023-01-31 16:33] LABS: THYROID STIMULATING HORMONE 1.642 uIU/ML (0.55-4.78)
== END ==
LOC: M PLALAB 11:56
PROVIDERS: ATTEND Physician Assistant Medical
DX: R53.83 Other fatigue (principal); Z79.899 Other long term (current) drug therapy

== ENCOUNTER → 2023-02-26 | Outpatient (CLI) | payer MEDICARE, OTHER ==
[2023-02-26 13:34] LABS: ALBUMIN 3.8 G/DL (3.2-5.2); BILIRUBIN,TOTAL 0.4 MG/DL (0.3-1.2); CALCIUM LEVEL 8.8 MG/DL (8.3-10.6); CREATININE FOR GFR 1.51 MG/DL (0.70-1.30); GLOMERULAR FILTRATION RATE 46.7 (>35); POTASSIUM SERUM 4.6 MMOL/L (3.5-5.1); TOTAL PROTEIN 6.8 G/DL (5.7-8.2)
[2023-02-26 13:45] LABS: HEMOGLOBIN A1c 7.9 % (4.0-6.0)
== END ==
LOC: M PLALAB 11:02
PROVIDERS: ATTEND Nurse Practitioner Adult Health
DX: E11.65 Type 2 diabetes mellitus with hyperglycemia (principal)

== ENCOUNTER → 2023-05-06 | Outpatient (CLI) | payer MEDICARE, OTHER | LOC: M PLAIMG 12:52 | PROVIDERS: ATTEND Physician Assistant Surgical | DX: M48.061 Spinal stenosis, lumbar region without neurogenic claudication (principal) ==

== ENCOUNTER → 2023-05-28 | Outpatient (CLI) | payer MEDICARE, OTHER ==
[2023-05-28 12:07] LABS: HEMATOCRIT 41.9 % (42.0-52.0); HEMOGLOBIN 13.6 g/dl (13.5-17.5); MEAN CORPUSCULAR HEMOGLOBIN 30.6 pg (27.0-33.0); MEAN CORPUSCULAR HGB CONC 32.5 g/dl (32.0-36.5); MEAN CORPUSCULAR VOLUME 94.2 fl (80.0-96.0); PLATELET COUNT, AUTOMATED 386 10^3/uL (150-450); RED BLOOD COUNT 4.45 10^6/uL (4.30-6.10); WHITE BLOOD COUNT 8.1 10^3/uL (4.0-10.0)
[2023-05-28 12:08] LABS: ALBUMIN 3.4 G/DL (3.2-5.2); BILIRUBIN,TOTAL 0.4 MG/DL (0.3-1.2); CALCIUM LEVEL 8.8 MG/DL (8.3-10.6); CREATININE FOR GFR 1.32 MG/DL (0.70-1.30); FERRITIN 208.1 NG/ML (10.5-307.3); GLOMERULAR FILTRATION RATE 54.5 (>35); POTASSIUM SERUM 4.6 MMOL/L (3.5-5.1); TOTAL 25(OH) VITAMIN D 100.5 NG/ML (20.0-100.0); TOTAL PROTEIN 6.5 G/DL (5.7-8.2)
[2023-05-28 12:59] LABS: HEMOGLOBIN A1c 7.2 % (4.0-6.0)
[2023-05-28 13:00] LABS: CREATININE, URINE 165.5 MG/DL; MAU/CREAT RATIO 6.6 MCG/MG (0.0-30.0)
== END ==
LOC: M PLALAB 08:30
PROVIDERS: ATTEND Nurse Practitioner Adult Health
DX: E11.65 Type 2 diabetes mellitus with hyperglycemia (principal); R53.83 Other fatigue

== ENCOUNTER → 2023-07-24 | Outpatient (CLI) | payer MEDICARE, OTHER | LOC: M PLAIMG 14:19 | PROVIDERS: ATTEND Nurse Practitioner Adult Health | DX: J10.1 Influenza due to other identified influenza virus with other respiratory manifestations (principal) ==

== ENCOUNTER → 2023-09-08 | Outpatient (REF) | payer MEDICARE, OTHER ==
[2023-09-08 13:40] LABS: HEMATOCRIT 45.7 % (42.0-52.0); HEMOGLOBIN 15.5 g/dl (13.5-17.5); MEAN CORPUSCULAR HEMOGLOBIN 31.8 pg (27.0-33.0); MEAN CORPUSCULAR HGB CONC 33.9 g/dl (32.0-36.5); MEAN CORPUSCULAR VOLUME 93.6 fl (80.0-96.0); PLATELET COUNT, AUTOMATED 310 10^3/uL (150-450); RED BLOOD COUNT 4.88 10^6/uL (4.30-6.10); WHITE BLOOD COUNT 11.3 10^3/uL (4.0-10.0)
[2023-09-08 13:54] LABS: FERRITIN 144.6 NG/ML (10.5-307.3); TOTAL 25(OH) VITAMIN D 73.4 NG/ML (20.0-100.0)
[2023-09-08 14:05] LABS: BILIRUBIN,TOTAL 0.8 MG/DL (0.3-1.2); CALCIUM LEVEL 9.3 MG/DL (8.3-10.6); CHOLESTEROL RISK RATIO 4.47 (<5); CREATININE FOR GFR 1.49 MG/DL (0.70-1.30); GLOMERULAR FILTRATION RATE 47.4 (>35); HDL CHOLESTEROL 40.2 MG/DL (>40); NON-HDL-C 139.8 MG/DL; POTASSIUM SERUM 4.7 MMOL/L (3.5-5.1); TOTAL PROTEIN 7.2 G/DL (5.7-8.2)
[2023-09-08 14:51] LABS: HEMOGLOBIN A1c 7.6 % (4.0-6.0)
== END ==
LOC: M SFHCPLAZ 13:19
PROVIDERS: ATTEND Nurse Practitioner Adult Health
DX: E11.65 Type 2 diabetes mellitus with hyperglycemia (principal); E78.5 Hyperlipidemia, unspecified; R53.83 Other fatigue; Z79.899 Other long term (current) drug therapy

== ENCOUNTER → 2023-12-15 | Outpatient (REF) | payer MEDICARE, OTHER ==
[~2023-12-15] MED LIST changes: +ESOM1CAP20 PO; -ESOM1CAP5 PO; +FLUO-365; -FLUO20CA22
[2023-12-15 12:15] LABS: APPEARANCE, URINE HAZY (CLEAR); BACTERIA, URINE AUTO NEGATIVE (NEGATIVE); BILIRUBIN, URINE AUTO NEGATIVE (NEGATIVE); BLOOD, URINE BLOOD NEGATIVE (NEGATIVE); COLOR, URINE AMBER (YELLOW); GLUCOSE, URINE (UA) AUTO NEGATIVE (NEGATIVE); KETONE, URINE AUTO NEGATIVE (NEGATIVE); LEUKOCYTE ESTERASE, URINE AUTO NEGATIVE (NEGATIVE); MUCUS, URINE SMALL (NEGATIVE); NITRITE, URINE AUTO NEGATIVE (NEGATIVE); PROTEIN, URINE AUTO NEGATIVE (NEGATIVE); RBC, URINE AUTO 1 /HPF (0-3); SPECIFIC GRAVITY URINE AUTO 1.014 (1.002-1.035); SQUAMOUS EPITHELIAL CELL UR AU 0 /HPF (0-6); UROBILINOGEN, URINE AUTO 0.2 mg/dL (0.0-2.0); WBC, URINE AUTO 0 /HPF (0-3)
== END ==
LOC: M LAB REF 11:56
PROVIDERS: ATTEND Physician Assistant Medical
DX: N39.0 Urinary tract infection, site not specified (principal)

== ENCOUNTER → 2024-01-07 | Outpatient (REF) | payer MEDICARE, OTHER | LOC: M SFHCPLAZ 12:21 | PROVIDERS: ATTEND Physician Assistant Medical | DX: R53.83 Other fatigue (principal); Z87.440 Personal history of urinary (tract) infections ==

== ENCOUNTER → 2024-01-08 | Outpatient (REF) | payer MEDICARE, OTHER ==
[2024-01-08 16:48] LABS: APPEARANCE, URINE HAZY (CLEAR); BACTERIA, URINE AUTO NEGATIVE (NEGATIVE); BILIRUBIN, URINE AUTO NEGATIVE (NEGATIVE); BLOOD, URINE BLOOD NEGATIVE (NEGATIVE); COLOR, URINE AMBER (YELLOW); GLUCOSE, URINE (UA) AUTO NEGATIVE (NEGATIVE); KETONE, URINE AUTO NEGATIVE (NEGATIVE); LEUKOCYTE ESTERASE, URINE AUTO NEGATIVE (NEGATIVE); NITRITE, URINE AUTO NEGATIVE (NEGATIVE); PROTEIN, URINE AUTO NEGATIVE (NEGATIVE); RBC, URINE AUTO 0 /HPF (0-3); SPECIFIC GRAVITY URINE AUTO 1.013 (1.002-1.035); SQUAMOUS EPITHELIAL CELL UR AU 0 /HPF (0-6); UROBILINOGEN, URINE AUTO 0.2 mg/dL (0.0-2.0); WBC, URINE AUTO 1 /HPF (0-3)
== END ==
LOC: M LAB REF 16:19
PROVIDERS: ATTEND Physician Assistant Medical
DX: N39.0 Urinary tract infection, site not specified (principal)

== ENCOUNTER → 2024-01-20 | Outpatient (REF) | payer MEDICARE, OTHER ==
[2024-01-20 12:22] LABS: APPEARANCE, URINE HAZY (CLEAR); BACTERIA, URINE AUTO NEGATIVE (NEGATIVE); BILIRUBIN, URINE AUTO NEGATIVE (NEGATIVE); BLOOD, URINE BLOOD NEGATIVE (NEGATIVE); COLOR, URINE YELLOW (YELLOW); GLUCOSE, URINE (UA) AUTO NEGATIVE (NEGATIVE); KETONE, URINE AUTO NEGATIVE (NEGATIVE); LEUKOCYTE ESTERASE, URINE AUTO NEGATIVE (NEGATIVE); NITRITE, URINE AUTO NEGATIVE (NEGATIVE); PROTEIN, URINE AUTO NEGATIVE (NEGATIVE); RBC, URINE AUTO 0 /HPF (0-3); SPECIFIC GRAVITY URINE AUTO 1.013 (1.002-1.035); SQUAMOUS EPITHELIAL CELL UR AU 0 /HPF (0-6); UROBILINOGEN, URINE AUTO 0.2 mg/dL (0.0-2.0); WBC, URINE AUTO 0 /HPF (0-3)
== END ==
LOC: M LAB REF 12:01
PROVIDERS: ATTEND Physician Assistant Medical
DX: N39.0 Urinary tract infection, site not specified (principal)

== ENCOUNTER → 2024-01-22 | Outpatient (CLI) | payer MEDICARE, OTHER ==
[2024-01-22 15:44] LABS: HEMATOCRIT 42.6 % (42.0-52.0); MEAN CORPUSCULAR HEMOGLOBIN 30.5 pg (27.0-33.0); MEAN CORPUSCULAR HGB CONC 32.9 g/dl (32.0-36.5); MEAN CORPUSCULAR VOLUME 92.8 fl (80.0-96.0); PLATELET COUNT, AUTOMATED 336 10^3/uL (150-450); RED BLOOD COUNT 4.59 10^6/uL (4.30-6.10); WHITE BLOOD COUNT 9.6 10^3/uL (4.0-10.0)
[2024-01-22 16:06] LABS: BILIRUBIN,TOTAL 0.6 MG/DL (0.3-1.2); CALCIUM LEVEL 9.4 MG/DL (8.3-10.6); CREATININE FOR GFR 1.91 MG/DL (0.70-1.30); GLOMERULAR FILTRATION RATE 35.5 (>35); POTASSIUM SERUM 5.3 MMOL/L (3.5-5.1); TOTAL PROTEIN 6.9 G/DL (5.7-8.2)
[2024-01-22 16:07] LABS: FREE T4 0.87 NG/DL (0.89-1.76); THYROID STIMULATING HORMONE 2.605 uIU/ML (0.55-4.78)
[2024-01-22 16:33] LABS: HEMOGLOBIN A1c 7.2 % (4.0-6.0)
== END ==
LOC: M PLALAB 13:40
PROVIDERS: ATTEND Nurse Practitioner Adult Health
DX: E11.65 Type 2 diabetes mellitus with hyperglycemia (principal); R53.83 Other fatigue; E55.9 Vitamin D deficiency, unspecified

== ENCOUNTER → 2024-01-25 | Outpatient (REF) | payer MEDICARE, OTHER | LOC: M WUC 17:49 | PROVIDERS: ATTEND Student in an Organized Health Care Education/Training Program | DX: R30.0 Dysuria (principal) ==

== ENCOUNTER → 2024-02-11 | Outpatient (REF) | payer MEDICARE, OTHER ==
[2024-02-11 11:02] LABS: APPEARANCE, URINE HAZY (CLEAR); BACTERIA, URINE AUTO NEGATIVE (NEGATIVE); BILIRUBIN, URINE AUTO NEGATIVE (NEGATIVE); BLOOD, URINE BLOOD NEGATIVE (NEGATIVE); COLOR, URINE YELLOW (YELLOW); GLUCOSE, URINE (UA) AUTO NEGATIVE (NEGATIVE); KETONE, URINE AUTO NEGATIVE (NEGATIVE); LEUKOCYTE ESTERASE, URINE AUTO NEGATIVE (NEGATIVE); MUCUS, URINE SMALL (NEGATIVE); NITRITE, URINE AUTO NEGATIVE (NEGATIVE); PROTEIN, URINE AUTO NEGATIVE (NEGATIVE); RBC, URINE AUTO 0 /HPF (0-3); SPECIFIC GRAVITY URINE AUTO 1.014 (1.002-1.035); SQUAMOUS EPITHELIAL CELL UR AU 0 /HPF (0-6); UROBILINOGEN, URINE AUTO 0.2 mg/dL (0.0-2.0); WBC, URINE AUTO 0 /HPF (0-3)
== END ==
LOC: M SMT 10:12
PROVIDERS: ATTEND Urology
DX: Z87.440 Personal history of urinary (tract) infections (principal); Z79.899 Other long term (current) drug therapy

== ENCOUNTER → 2024-05-21 | Outpatient (CLI) | payer MEDICARE, OTHER ==
[~2024-05-21] MED LIST changes: -CYCL5TAB PO; +CYCL5TAB4 PO; +GLIP10TA15 PO; -GLIP10TA6 PO; +META-10; -META1TAB22
[2024-05-21 12:30] LABS: HEMATOCRIT 43.5 % (42.0-52.0); HEMOGLOBIN 14.1 g/dl (13.5-17.5); MEAN CORPUSCULAR HEMOGLOBIN 30.5 pg (27.0-33.0); MEAN CORPUSCULAR HGB CONC 32.4 g/dl (32.0-36.5); PLATELET COUNT, AUTOMATED 336 10^3/uL (150-450); RED BLOOD COUNT 4.63 10^6/uL (4.30-6.10); WHITE BLOOD COUNT 9.6 10^3/uL (4.0-10.0)
[2024-05-21 12:34] LABS: ALBUMIN 3.8 G/DL (3.2-5.2); BILIRUBIN,TOTAL 0.6 MG/DL (0.3-1.2); CALCIUM LEVEL 9.7 MG/DL (8.3-10.6); CHOLESTEROL RISK RATIO 4.47 (<5); CREATININE FOR GFR 1.53 MG/DL (0.70-1.30); GLOMERULAR FILTRATION RATE 45.9 (>35); HDL CHOLESTEROL 38.7 MG/DL (>40); LDL CHOLESTEROL 95.3 MG/DL (<100); MAGNESIUM LEVEL 1.8 MG/DL (1.8-2.4); NON-HDL-C 134.3 MG/DL; POTASSIUM SERUM 4.9 MMOL/L (3.5-5.1); TOTAL PROTEIN 6.8 G/DL (5.7-8.2)
[2024-05-21 12:35] LABS: FERRITIN 142.6 NG/ML (10.5-307.3); THYROID STIMULATING HORMONE 2.236 uIU/ML (0.55-4.78)
[2024-05-21 12:36] LABS: FREE T4 1.01 NG/DL (0.89-1.76)
[2024-05-21 13:08] LABS: HEMOGLOBIN A1c 7.8 % (4.0-6.0)
== END ==
LOC: M WUC 09:39
PROVIDERS: ATTEND Nurse Practitioner Adult Health
DX: E11.65 Type 2 diabetes mellitus with hyperglycemia (principal); R53.83 Other fatigue; E78.5 Hyperlipidemia, unspecified; I10 Essential (primary) hypertension; E55.9 Vitamin D deficiency, unspecified

== ENCOUNTER → 2024-06-28 | Outpatient (CLI) | payer MEDICARE, OTHER | LOC: M PLAIMG 14:31 | PROVIDERS: ATTEND Nurse Practitioner Adult Health | DX: R06.2 Wheezing (principal) ==

== ENCOUNTER → 2024-09-10 | Outpatient (CLI) | payer MEDICARE, OTHER ==
[2024-09-10 10:55] LABS: HEMATOCRIT 43.6 % (42.0-52.0); HEMOGLOBIN 14.2 g/dl (13.5-17.5); MEAN CORPUSCULAR HEMOGLOBIN 30.5 pg (27.0-33.0); MEAN CORPUSCULAR HGB CONC 32.6 g/dl (32.0-36.5); MEAN CORPUSCULAR VOLUME 93.8 fl (80.0-96.0); PLATELET COUNT, AUTOMATED 287 10^3/uL (150-450); RED BLOOD COUNT 4.65 10^6/uL (4.30-6.10); WHITE BLOOD COUNT 8.7 10^3/uL (4.0-10.0)
[2024-09-10 11:08] LABS: HEMOGLOBIN A1c 7.8 % (4.0-6.0)
[2024-09-10 11:19] LABS: ALBUMIN 3.9 G/DL (3.2-5.2); BILIRUBIN,TOTAL 0.8 MG/DL (0.3-1.2); CALCIUM LEVEL 9.3 MG/DL (8.3-10.6); CHOLESTEROL RISK RATIO 4.34 (<5); CREATININE FOR GFR 1.48 MG/DL (0.70-1.30); GLOMERULAR FILTRATION RATE 47.6 (>35); HDL CHOLESTEROL 41.9 MG/DL (>40); LDL CHOLESTEROL 102.7 MG/DL (<100); MAGNESIUM LEVEL 1.8 MG/DL (1.8-2.4); NON-HDL-C 140.1 MG/DL; POTASSIUM SERUM 4.7 MMOL/L (3.5-5.1); TOTAL PROTEIN 7.1 G/DL (5.7-8.2)
[2024-09-10 11:20] LABS: FERRITIN 159.9 NG/ML (10.5-307.3); THYROID STIMULATING HORMONE 2.125 uIU/ML (0.55-4.78)
[2024-09-10 11:21] LABS: FREE T4 1.08 NG/DL (0.89-1.76)
== END ==
LOC: M PLALAB 09:18
PROVIDERS: ATTEND Nurse Practitioner Adult Health
DX: R53.83 Other fatigue (principal); D50.9 Iron deficiency anemia, unspecified; E78.00 Pure hypercholesterolemia, unspecified

== ENCOUNTER → 2024-09-11 | Outpatient (REF) | payer MEDICARE, OTHER | LOC: M LAB REF 21:05 | PROVIDERS: ATTEND Physician Assistant | DX: B37.42 Candidal balanitis (principal); Z79.899 Other long term (current) drug therapy ==